=== PATIENT | male | born 1975 | race African-American/Black ===

== ENCOUNTER 2016-11-20 22:01 | Emergency (ER) | payer SELFPAY ==
[2016-11-20 22:13] VITALS: BP 114/76; PULSE 104; TEMP 98.6; BMI 24.0
--- NOTE | 2016-11-20 22:57 | PDOC ---
History of Present Illness - General History Source: Patient Exam Limitations: No Limitations - History of Present Illness Initial Comments: 11/20/16 23:21 The patient is a 40 year old male, with a significant past medical history of DM , Asthma who presents to the emergency department with elevated blood sugar and blisters on back. Patient states his BG was 480 and immediately took his Metformin and Glyburide. In the ED, patients BG was 280. Patient states his back blisters began 4 days ago. Patient denies any fever/chills and presents to the ED for further evaluation. He denies chest pain, headache or dizziness. He denies fever, chills, abdominal pain, nausea, vomit, diarrhea or constipation. He denies dysuria, frequency, urgency or hematuria. Allergies: seafood Past surgical history: none Social history: Current everyday smoker PCP: Dr. Soto <Amanda Giang - Last Filed: 11/20/16 23:21> <Michelet Antony - Last Filed: 11/21/16 00:06> - General Chief Complaint: Blood Sugar Problem Stated Complaint: HIGH BLOOD SUGAR Time Seen by Provider: 11/20/16 22:42 Past History <Amanda Giang - Last Filed: 11/20/16 23:21> - Past Medical History Asthma: Yes Diabetes: Yes Suicide Attempt (Hx): No - Surgical History Cardiac Surgery: No Neurologic Surgery: No - Immunization History Td Vaccination: No TDAP Vaccination: No Immunization Up to Date: Yes - Psycho/Social/Smoking Cessation Hx Anxiety: No Suicidal Ideation: No Smoking Status: Yes Smoking History: Current every day smoker Years of Tobacco Use: 25 Have you smoked in the past 12 months: Yes Number of Cigarettes Smoked Daily: 20 Cigars Per Day: 0 Information on smoking cessation initiated: No 'Breaking Loose' booklet given: 01/07/16 Hx Alcohol Use: No Drug/Substance Use Hx: No Substance Use Type: None Hx Substance Use Treatment: No <Michelet Antony - Last Filed: 11/21/16 00:06> - Past Medical History Allergies/Adverse Reactions: Allergies Allergy/AdvReac Type Severity Reaction Status Date / Time No Known Drug Allergies Allergy Verified 11/20/16 22:09 seafood Allergy Uncoded 11/20/16 22:09 Home Medications: Ambulatory Orders Metformin HCl 1,000 mg PO BID #60 tablet 08/25/11 Glyburide [Diabeta -] 5 mg PO BID@0700,1630 11/20/16 Pioglitazone HCl [Actos] 30 mg PO DAILY 11/20/16 Sulfamethoxazole/Trimethoprim [Bactrim Ds -] 1 tab PO BID #20 tablet 11/21/16 Review of Systems - Review of Systems Able to Perform ROS?: Yes Comments:: 11/20/16 23:22 CONSTITUTIONAL: No fever, no chills, no fatigue EYES: No visual changes ENT: No ear pain, no sore throat CARDIOVASCULAR: No chest pain, no palpitations RESPIRATORY: No cough, no SOB GI: No abdominal pain, no nausea, no vomiting, no constipation, no diarrhea GENITOURINARY: No dysuria, no frequency, no hematuria MUSKULOSKELETAL: No back pain, no joint pain, no myalgias SKIN:+blister to the back. No rash NEURO: No headache <Amanda Giang - Last Filed: 11/20/16 23:21> *Physical Exam - Vital Signs Last Vital Signs Temp Pulse Resp BP Pulse Ox 98.6 F 104 H 22 114/76 99 11/20/16 22:12 11/20/16 22:12 11/20/16 22:12 11/20/16 22:12 11/20/16 22:12 - Physical Exam Comments: 11/20/16 23:22 CONSTITUTIONAL: Well-appearing; well-nourished; in no apparent distress HEAD: Normocephalic; atraumatic EYES: PERRL; EOM intact ENMT: External appears normal; normal oropharynx NECK: Supple; nontender; no cervical lymphadenopathy CARD: Normal S1, S2; no murmurs, rubs, or gallops RESP: Normal chest excursion with respiration; breath sounds clear and equal bilaterally; no wheezes, rhonchi, or rales ABD: Soft, non-distended; non-tender; no palpable organomegaly, no palpable hernias EXT: Normal ROM in all four extremities; non-tender to palpation; distal pulses intact SKIN: +4cm area of induration below L scarpulla. Warm, dry, no rash NEURO: No focal neurological deficiencies. <Amanda Giang - Last Filed: 11/20/16 23:21> - Vital Signs Last Vital Signs Temp Pulse Resp BP Pulse Ox 98.6 F 104 H 22 114/76 99 11/20/16 22:12 11/20/16 22:12 11/20/16 22:12 11/20/16 22:12 11/20/16 22:12 <Michelet Antony - Last Filed: 11/21/16 00:06> ED Treatment Course - LABORATORY CBC & Chemistry Diagram: 11/20/16 22:50 11/20/16 22:50 - ADDITIONAL ORDERS Additional order review: Laboratory Results 11/20/16 22:49 POC Glucometer [id number] 11/20/16 22:49 POC Glucometer [id number] - Medications Given in the ED: ED Medications Discontinued Medications Generic Name Dose Route Start Last Admin Trade Name Freq PRN Reason Stop Dose Admin Trimethoprim/Sulfamethoxazole 1 each 11/20/16 23:04 11/20/16 23:13 Bactrim Ds - PO 11/20/16 23:05 1 each ONCE ONE Administration <Amanda Giang - Last Filed: 11/20/16 23:21> - LABORATORY CBC & Chemistry Diagram: 11/20/16 22:50 11/20/16 22:50 <Michelet Antony - Last Filed: 11/21/16 00:06> Medical Decision Making - Medical Decision Making 11/21/16 00:03 Patient is a well-appearing 40-year-old male with history of poorly controlled diabetes who presents to the ER with elevated blood sugar shortly prior to arrival (BGM for 80) which she treated by taking his regularly scheduled metformin and glyburide. Patient also complaining of an indurated lesion to the left upper back which she said for the past several days which started as a boil. In the ER, patient is awake and alert, afebrile, well-appearing, hemodynamically stable. BGM is noted to be 280. CBC is within normal limit. CMP reveals mild hyperglycemia of 280 with a normal anion gap. Physical exam reveals a 4 cm area of induration located below the left scapula without palpable fluctuance. There is no indication for incision and drainage at this time. Will discharge with Bactrim DS by mouth twice a day for 10 days and warm compresses with outpatient follow-up. <Michelet Antony - Last Filed: 11/21/16 00:06> *DC/Admit/Observation/Transfer - Attestations Scribe Attestion: 11/20/16 23:22 Documentation prepared by Amanda Giang, acting as medical assistant supervisor for Michelet Antony MD <Amanda Giang - Last Filed: 11/20/16 23:21> - Attestations Physician Attestion: 11/21/16 00:03 The documentation was prepared by the scribe under my direct supervision. I have reviewed the documentation which correctly represents the findings, medical decision-making and critical action taken by me. <Michelet Antony - Last Filed: 11/21/16 00:06> Diagnosis at time of Disposition: Hyperglycemia, Cellulitis and abscess of unspecified site - Discharge Dispostion Disposition: HOME Condition at time of disposition: Stable - Referrals Referrals: Keke Rachel MD [Primary Care Provider] - - Patient Instructions Printed Discharge Instructions: DI for Hyperglycemia -- Adult, DI for Cellulitis -- Adult Additional Instructions: Apply warm compresses to the affected area. Take antibiotics as described. Return for follow-up within next 72 hours. Return immediately for high fever, severe pain.
[2016-11-20] MEDS ORDERED: SULFAMETHOXAZOLE/TRIMETHOPRIM 800MG/160MG D.S. TABLET PO ONE (23:04)
[2016-11-20] MEDS ORDERED: SULFAMETHOXAZOLE/TRIMETHOPRIM 800MG/160MG D.S. TABLET ONE (23:10)
[2016-11-20 23:17] LABS: BASOPHIL 0.4 % (0-2.0); EOSINOPHIL 1.4 % (0-4.5); MCH 25.5 pg (25.7-33.7); MCHC 33.2 g/dl (32.0-35.9); MEAN PLT VOLUME 8.6 fl (7.5-11.1); NEUTROPHILS 73.7 % (42.8-82.8); PLATELET COUNT 193 K/MM3 (134-434); RDW 14.4 % (11.9-15.9); WHITE BLOOD COUNT 10.4 K/mm3 (4.0-10.0)
[2016-11-20 23:46] LABS: ALBUMIN 3.4 g/dl (3.4-5.0); ANION GAP 7 (8-16); CALCIUM 9.4 mg/dL (8.5-10.1); CO2 30 mmol/L (21-32); CREATININE 0.9 mg/dL (0.7-1.3); GLUCOSE,RANDOM 267 mg/dL (74-106); SGOT/AST 8 U/L (15-37); SGPT/ALT 22 U/L (12-78)
[2016-11-20 23:48] LABS: ALK PHOS 82 U/L (45-117); BILIRUBIN,TOTAL 0.6 mg/dL (0.2-1.0)
== END 2016-11-21 00:11 | disposition home or self-care (01) ==
LOC: JER 22:01
DX: E11.65 Type 2 diabetes mellitus with hyperglycemia (principal); Z79.84 Long term (current) use of oral hypoglycemic drugs; L03.312 Cellulitis of back [any part except buttock and flank]; L02.212 Cutaneous abscess of back [any part, except buttock and flank]; J45.909 Unspecified asthma, uncomplicated; F17.210 Nicotine dependence, cigarettes, uncomplicated; Z91.013 Allergy to seafood
CPT/HCPCS: 36415; 80053; 85025; 99281-25

== ENCOUNTER 2018-05-30 20:56 | Inpatient (IN) | payer SELFPAY ==
--- NOTE | 2018-05-30 21:08 | PDOC ---
Rapid Medical Evaluation Time Seen by Provider: 05/30/18 21:01 Medical Evaluation: Allergies Allergy/AdvReac Type Severity Reaction Status Date / Time No Known Drug Allergies Allergy Verified 11/20/16 22:09 seafood Allergy Uncoded 11/20/16 22:09 05/30/18 21:02 Pt presents with cough and fever since Tuesday. Also with associated headache, bodyaches, and chest tightness. PMHX of asthma Exam: Tight lung sounds with poor aeration to the bases. Scattered wheezing. O2 sat 92% Orders: Labs, duoneb, cxr, ekg, flu Pt to proceed to the ED for further evaluation Discharge Disposition - Diagnosis Flu-like symptoms - Referrals - Patient Instructions - Post Discharge Activity
[2018-05-30] MEDS: ALBUTEROL SO4 2.5/IPRATROPIUM 0.5 INH SOL 3 ML VIAL.NEB. NEB SCH ×3 (21:09→22:32)
--- NOTE | 2018-05-30 21:19 | PDOC ---
Attending Attestation - HPI HPI: This patient is a 42 year old male with PMHx of NIDDM, remote h/o asthma (last exacerbation > 25 years ago), who presents with cough, chest tightness, fever, dizziness, body aches neck and back pain. Patient states that 4 days ago (Tuesday ), he began having nasal congestion. Tuesday he states he developed a headache , photophobia, body aches, neck stiffness, back pain. Yesterday he notes chest tightness that was at a 3/10 and today he states it s 7/10. He also notes loose , muscousy stools since Tuesday. Last BM was this morning. And states he notices lots of bubbles when he urinates and has a nonproductive cough. Denies recent antibiotics use. Social Hx: ppd smoker (since age 9). Denies EtOH or drug use. 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 <Rebecca Morales - Last Filed: 05/30/18 21:38> - Resident Resident Name: Price Lizarraga - ED Attending Attestation I have performed the following: I have examined & evaluated the patient, The case was reviewed & discussed with the resident, I agree w/resident's findings & plan, Exceptions are as noted - HPI HPI: 05/30/18 21:17 42 yo male with 4 days of fever,chills,cough,body aches He also has c/o of "bubbles' in his urine and the mucus in his stools - Physicial Exam PE: 05/30/18 21:24 Tall,thin 42 yo male p/w wheezing and feeling short of breath with URI symptoms since Tuesday head ncat neck supple lungs scattered expiratory wheezing abd no rebound cvs tachycardia(after resp tx) ext no edema skin warm and dry neuro axox3,ambulatory 05/30/18 21:27 - Medical Decision Making 05/30/18 22:57 42 yo male with fever,chills,nasal congestion,body aches and tonight dev some wheezing 05/31/18 00:54 cxr+ infiltrates cbc wnl [id number] NEGATIVE influenza pt has wheezing now in al lungs mann <Abbie Green - Last Filed: 05/31/18 01:15> Attestations - Attestations 05/30/18 21:38 Documentation prepared by Rebecca Morales, acting as medical staff assistant for Abbie Green MD. <Rebecca Morales - Last Filed: 05/30/18 21:38> - Attestations Physician Attestation: 05/31/18 01:12 pt has hypoxia,low grade fever,infiltrates on his cxr and diffuse expiratory wheezing -pt given IV antibiotics pt has persistent wheezing and will be admitted for further resp treatments, supplemental o2 as needed and IV antibiotics IMP: pneumnia, asthma exacerbation,diabetes <Abbie Green - Last Filed: 05/31/18 01:15>
--- NOTE | 2018-05-30 21:32 | PDOC ---
History of Present Illness - General Chief Complaint: Cold Symptoms Stated Complaint: FEVER Time Seen by Provider: 05/30/18 21:01 History Source: Patient Exam Limitations: No Limitations - History of Present Illness Initial Comments: 05/30/18 21:27 42 yo Male with PMH NIDDM, distant hx Asthma presents with nonproductive cough, myalgias, headache for 4 days and chest tightness for 1 day. He states he has felt sick but did not feel it necessary to come in until the chest tightness increased from a 4 yesterday to a 7 today. He states he has not had an asthma attack in over 25 years. He is an every day smoker for > 30 years and smokes a half a pack a day. Of note he also states that he has some LLQ abdominal pain and has had loose mucus filled stools for the last few days as well. Denies any recent antibiotic use. Past History - Travel Traveled outside of the country in the last 30 days: No Close contact w/someone who was outside of country & ill: No - Past Medical History Allergies/Adverse Reactions: Allergies Allergy/AdvReac Type Severity Reaction Status Date / Time No Known Drug Allergies Allergy Verified 05/30/18 21:03 seafood Allergy Uncoded 05/30/18 21:03 Home Medications: Ambulatory Orders Metformin HCl 1,000 mg PO BID #60 tablet 08/25/11 Glyburide [Diabeta -] 5 mg PO BID@0700,1630 11/20/16 Pioglitazone HCl [Actos] 30 mg PO DAILY 11/20/16 Sulfamethoxazole/Trimethoprim [Bactrim Ds -] 1 tab PO BID #20 tablet 11/21/16 Asthma: Yes (last exacerbation > 25 yrs ago) COPD: No Diabetes: Yes (NIDDM) - Surgical History Cardiac Surgery: No Neurologic Surgery: No - Immunization History Td Vaccination: No TDAP Vaccination: No Immunization Up to Date: Yes - Suicide/Smoking/Psychosocial Hx Smoking Status: Yes Smoking History: Current every day smoker Years of Tobacco Use: 25 Have you smoked in the past 12 months: Yes Number of Cigarettes Smoked Daily: 10 Cigars Per Day: 0 Information on smoking cessation initiated: No 'Breaking Loose' booklet given: 01/07/16 Hx Alcohol Use: No Drug/Substance Use Hx: No Substance Use Type: None Hx Substance Use Treatment: No Review of Systems - Review of Systems Constitutional: Yes: Chills, Fever HEENTM: Yes: Other (Photophobia) Respiratory: Yes: Cough (nonproductive) Cardiac (ROS): Yes: Chest Tightness. No: Chest Pain, Irregular Heart Rate ABD/GI: Yes: Diarrhea (mucus) *Physical Exam - Vital Signs Last Vital Signs Temp Pulse Resp BP Pulse Ox 99.7 F H 109 H 20 111/77 92 L 05/30/18 21:03 05/30/18 21:03 05/30/18 21:03 05/30/18 21:03 05/30/18 21:03 - Physical Exam Comments: 05/30/18 21:41 GEN: A&O, no acute distress HEENT: PERRLA, EOMI, photophobia noted NECK: supple w/o lymphadenopathy, Brudzinski/Kernig sign negative HEART: Tachycardic, regular rhythm, no murmur noted LUNGS: Mild diffuse wheezes, no crackles, decreased air entry at bases ABDOMEN: tenderness LLQ palpation, normoactive bowel sounds EXTREMITIES: normal ROM, no calf tenderness Moderate Sedation - Procedure Monitoring Vital Signs: Procedure Monitoring Vital Signs Temperature 99.7 F H 05/30/18 21:03 Pulse Rate 109 H 05/30/18 21:03 Respiratory Rate 20 05/30/18 21:03 Blood Pressure 111/77 05/30/18 21:03 O2 Sat by Pulse Oximetry (%) 92 L 05/30/18 21:03 Medical Decision Making - Medical Decision Making 05/30/18 21:44 CBC, CMP, Flu swab pending, CXR pending EKG tachycardia without any ST/T wave abnormalities DuoNebs, Decadron 10 mg IV given, will reassess and f/u labs 05/30/18 22:06 Labs still pending. Sign out given to Dr. Rogers who will continue care at this point. *DC/Admit/Observation/Transfer Diagnosis at time of Disposition: Flu-like symptoms - Referrals - Patient Instructions - Post Discharge Activity
[2018-05-30] MEDS ORDERED: DEXAMETHASONE SOD PHOSPHATE 10 MG/1 ML VIAL IVPUSH ONE (21:36)
[2018-05-30] MEDS ORDERED: LACTATED RINGERS SOLUTION 1000 ML INFUS.BAG IV ONE (21:37)
[2018-05-30] MEDS ORDERED: DEXAMETHASONE SOD PHOSPHATE 10 MG/1 ML VIAL ONE (22:05)
[2018-05-30] MEDS ORDERED: ALBUTEROL SO4 2.5/IPRATROPIUM 0.5 INH SOL 3 ML VIAL.NEB. NEB ONE (22:05)
--- NOTE | 2018-05-30 22:05 | PDOC ---
*Physical Exam - Vital Signs Last Vital Signs Temp Pulse Resp BP Pulse Ox 99.7 F H 109 H 20 111/77 92 L 05/30/18 21:03 05/30/18 21:03 05/30/18 21:03 05/30/18 21:03 05/30/18 21:03 ED Treatment Course - LABORATORY CBC & Chemistry Diagram: 05/30/18 21:55 05/30/18 21:55 - Medications Given in the ED: ED Medications Discontinued Medications Generic Name Dose Route Start Last Admin Trade Name Freq PRN Reason Stop Dose Admin Albuterol/Ipratropium 1 amp 05/30/18 21:15 05/30/18 21:09 Duoneb - NEB 05/30/18 22:01 1 amp Q15M ELIEZER Administration Medical Decision Making - Medical Decision Making 05/30/18 22:04 The patient was signed out to me by Dr. Lizarraga. The patient is a 42M who presents with viral syndrome, pending labs and medications. Influenza negative. 05/31/18 02:08 Lungs continue to have wheezing with diffuse rhonchi. Pt endorsed to Dr. Handley for admission. *DC/Admit/Observation/Transfer Diagnosis at time of Disposition: Flu-like symptoms - Discharge Dispostion Condition at time of disposition: Guarded Decision to Admit order: Yes - Prescriptions Prescriptions: Albuterol Sulfate Inhaler - [Ventolin Hfa Inhaler -] 1 - 2 inh PO Q4H PRN #1 inhaler PRN Reason: Wheezing Azithromycin [Zithromax -] 250 mg PO UTDICT #6 tab Prednisone [Deltasone] 40 mg PO DAILY #4 tablet MDD 1 tab - Referrals - Patient Instructions - Post Discharge Activity
[2018-05-30 22:17] LABS: EOS % 0.3 % (0-4.5); HEMATOCRIT 38.5 % (35.4-49); HEMOGLOBIN 12.9 GM/dL (11.7-16.9); LYMPH % 11.5 % (8-40); MCH 26.5 pg (25.7-33.7); MCHC 33.6 g/dl (32.0-35.9); MEAN CELL VOLUME 78.8 fl (80-96); MEAN PLT VOLUME 9.3 fl (7.5-11.1); MONO % 12.6 % (3.8-10.2); NEUT % 74.6 % (42.8-82.8); PLATELET COUNT 159 K/MM3 (134-434); RBC 4.89 M/mm3 (4.00-5.60); RDW 14.1 % (11.9-15.9); WHITE BLOOD COUNT 10.3 K/mm3 (4.0-10.0)
[2018-05-30 23:03] LABS: PLATELET ESTIMATE ADEQUATE
[2018-05-30 23:08] LABS: ALBUMIN 2.9 g/dl (3.4-5.0); ALK PHOS 96 U/L (45-117); ANION GAP 9 MMOL/L (8-16); BILIRUBIN,TOTAL 0.5 mg/dL (0.2-1); BLOOD UREA NITROGEN 8 mg/dL (7-18); CHLORIDE 97 mmol/L (98-107); CO2 28 mmol/L (21-32); CREATININE 0.9 mg/dL (0.55-1.3); GLUCOSE,RANDOM 250 mg/dL (74-106); POTASSIUM 3.8 mmol/L (3.5-5.1); SGOT/AST 30 U/L (15-37); SGPT/ALT 30 U/L (13-61); SODIUM 134 mmol/L (136-145); TOT PROT 6.4 g/dl (6.4-8.2)
[2018-05-30] MEDS ORDERED: AZITHROMYCIN IVPB 500 MG in DEXTROSE 5%-WATER - 250 ML IVPB ONE (23:22)
[2018-05-30] MEDS ORDERED: CEFTRIAXONE 1 GM in DEXTROSE 5%-WATER - 100 ML IVPB ONE (23:43)
[2018-05-30] MEDS ORDERED: AZITHROMYCIN IVPB 500 MG/250 ML BAG IVPB ONE (23:49)
[2018-05-30] MEDS ORDERED: CEFTRIAXONE 1 GM/50 ML BAG ONE (23:50)
[2018-05-31] MEDS ORDERED: ALBUTEROL SO4 2.5/IPRATROPIUM 0.5 INH SOL 3 ML VIAL.NEB. NEB ONE ×3 (00:07→00:28)
[2018-05-31 00:42] LABS: URINE APPEARANCE SLCLOUDY; URINE BILIRUBIN NEGATIVE (<2.0 mg/dL); URINE COLOR YELLOW; URINE GLUCOSE (UA) 3+ (NEGATIVE); URINE KETONE 1+ (NEGATIVE); URINE LEUK ESTERASE NEGATIVE (NEGATIVE); URINE NITRITE NEGATIVE (NEGATIVE); URINE PROTEIN 1+ (NEGATIVE)
[2018-05-31 00:53] LABS: EPI CELLS RARE /HPF (FEW); URINE BACTERIA RARE /hpf (NONE SEEN); URINE HYALINE CAST 1 /lpf; URINE MUCUS RARE
--- NOTE | 2018-05-31 03:09 | HP ---
CHIEF COMPLAINT: non-productive cough, myalgia, headache PCP: Dr. Tapia HISTORY OF PRESENT ILLNESS: 42M w/ pmhx of asthma, NIDDM presents with 4 day history of non-productive cough , mylagia, HORTON, cold symptoms, chest tightness. He states he started "feeling bad " last Tuesday, but when he woke up Tuesday morning, his symptoms worsened. He denies sick contacts and currently lives with his fiancee and two daughters at home. He admits to only taking Aleve for his headache and Robitussin for his cough. Additionally, he admits to chest tightness especially when he coughs. He states that since the onset of these symptoms, he gets short of breath; worsened when laying flat, alleviated when sitting up straight. Of note, he is a current smoker, 1/2 PPD for the past 30 years. His persistent symptoms prompted him to come to the ED to seek further medical attention. Pt also has a history of asthma, but his last asthma attack was when he was around 12 years of age. He denies currently using an inhaler and hasn't had to use one in many years. He denies seeing a [employer] and only follows up with his PCP, Dr. Oviedo. ER course was notable for: (1) HR 109, WBC 10.3, Na 134, K 3.8, Glu 280 (2) Rapid flu neg, CXR showed patchy interstitial opacities center of lung L > R , suggestive of pneumonia infiltrates (3) Duonebs x4, Decadron 10 IVP, LR x1L, Azithromycin 500 IVPB, Ceftriaxone 1 gm IVPB Recent Travel: Denies PAST MEDICAL HISTORY: NIDDM Asthma PAST SURGICAL HISTORY: Denies Social History: Smoking: Current smoker; 1/2 PPD x30 years Alcohol: Denies Drugs: Denies Family History: Mother- Heart disease, HTN Maternal aunt- breast cx Maternal grandmother- DM Allergies No Known Drug Allergies Allergy (Verified 05/30/18 21:03) seafood Allergy (Uncoded 05/30/18 21:03) HOME MEDICATIONS: Home Medications Medication Instructions Recorded Metformin HCl 1,000 mg PO BID #60 tablet 08/25/11 Glyburide [Diabeta -] 5 mg PO BID@0700,1630 11/20/16 Pioglitazone HCl [Actos] 30 mg PO DAILY 11/20/16 Sulfamethoxazole/Trimethoprim 1 tab PO BID #20 tablet 11/21/16 [Bactrim Ds -] Albuterol Sulfate Inhaler - 1 - 2 inh PO Q4H PRN #1 inhaler 05/30/18 [Ventolin Hfa Inhaler -] Azithromycin [Zithromax -] 250 mg PO UTDICT #6 tab 05/30/18 Prednisone [Deltasone] 40 mg PO DAILY #4 tablet MDD 1 tab 05/30/18 REVIEW OF SYSTEMS CONSTITUTIONAL: Denies chills, diaphoresis, loss of appetite HEENT: Denies difficulty swallowing, ear pain, eye pain, visual/hearing changes CARDIOVASCULAR: Admits to chest tightness; Denies chest pain, palpitations, irregular heart rate, lightheadedness, peripheral edema RESPIRATORY: Admits to sob and cough; Denies noriega, orthopnea, wheezing GASTROINTESTINAL: Admits to nausea/vomiting; Denies urinary/bowel symptoms GENITOURINARY: Denies hematuria, dysuria MUSCULOSKELETAL: Denies neck or back pain NEUROLOGIC: Denies bladder/bowel incontinence, facial droop, slurred speech PHYSICAL EXAMINATION Vital Signs - 24 hr 05/30/18 05/31/18 21:03 02:30 Temperature 99.7 F H 97.9 F Pulse Rate 109 H Pulse Rate [ 111 H Left Radial] Respiratory 20 18 Rate Blood Pressure 111/77 Blood Pressure 106/69 [Left Arm] O2 Sat by Pulse 92 L 96 Oximetry (%) GENERAL: AAOx3. NAD. Comfortable. HEENT: AT/NC. EOMI. REAL. Dry mucus membranes. NECK: Normal range of motion, supple without lymphadenopathy, JVD, or masses. LUNGS: Diffuse b/l wheezes throughout. Good air entry. HEART: Tachycardic. Normal S1, S2. No murmurs heard. ABDOMEN: Soft, ND. +TTP in LUQ. No masses or bruits noted. Hyperactive bowel sounds. MUSCULOSKELETAL: Normal range of motion at all joints. No bony deformities or tenderness. No CVA tenderness. UPPER EXTREMITIES: 2+ pulses, warm, well-perfused. No cyanosis. No clubbing. No peripheral edema. LOWER EXTREMITIES: 2+ pulses, warm, well-perfused. No calf tenderness. No peripheral edema. NEUROLOGICAL: Normal speech. Normal gait. 5/5 muscle strength in u/l b/l extremities including hand traffic control flagger. SKIN: Warm, dry, normal turgor, no rashes or lesions noted, normal capillary refill. Laboratory Results - last 24 hr 05/30/18 05/30/18 05/30/18 21:10 21:55 21:55 WBC 10.3 H RBC 4.89 Hgb 12.9 Hct 38.5 MCV 78.8 L MCH 26.5 MCHC 33.6 RDW 14.1 Plt Count 159 MPV 9.3 Absolute Neuts (auto) 7.7 Total Counted 100 Neutrophils % 74.6 Neutrophils % (Manual) 86.0 H Lymphocytes % 11.5 Lymphocytes % (Manual) 11.0 Monocytes % 12.6 H Monocytes % (Manual) 3 L Eosinophils % 0.3 Basophils % 1.0 Nucleated RBC % 0 Platelet Estimate Adequate Sodium 134 L Potassium 3.8 Chloride 97 L Carbon Dioxide 28 Anion Gap 9 BUN 8 Creatinine 0.9 Creat Clearance w eGFR > 60 Random Glucose 250 H Calcium 8.0 L Total Bilirubin 0.5 AST 30 ALT 30 Alkaline Phosphatase 96 Total Protein 6.4 Albumin 2.9 L Urine Color Urine Appearance Urine pH Ur Specific [place] Urine Protein Urine Glucose (UA) Urine Ketones Urine Blood Urine Nitrite Urine Bilirubin Urine Urobilinogen Ur Leukocyte Esterase Urine WBC (Auto) Urine RBC (Auto) Ur Epithelial Cells Urine Bacteria Hyaline Casts Urine Mucus Influenza A (Rapid) Negative Influenza B (Rapid) Negative 05/31/18 00:30 WBC RBC Hgb Hct MCV MCH MCHC RDW Plt Count MPV Absolute Neuts (auto) Total Counted Neutrophils % Neutrophils % (Manual) Lymphocytes % Lymphocytes % (Manual) Monocytes % Monocytes % (Manual) Eosinophils % Basophils % Nucleated RBC % Platelet Estimate Sodium Potassium Chloride Carbon Dioxide Anion Gap BUN Creatinine Creat Clearance w eGFR Random Glucose Calcium Total Bilirubin AST ALT Alkaline Phosphatase Total Protein Albumin Urine Color Yellow Urine Appearance Slcloudy Urine pH 5.0 Ur Specific [place] 1.017 Urine Protein 1+ H Urine Glucose (UA) 3+ H Urine Ketones 1+ H Urine Blood Negative Urine Nitrite Negative Urine Bilirubin Negative Urine Urobilinogen 2.0 Ur Leukocyte Esterase Negative Urine WBC (Auto) 5 Urine RBC (Auto) <1 Ur Epithelial Cells Rare Urine Bacteria Rare Hyaline Casts 1 Urine Mucus Rare Influenza A (Rapid) Influenza B (Rapid) IMAGING: * CXR: Patchy interstitial opacities center of lung L > R, suggesting pneumonia infiltrates ASSESSMENT/PLAN: 42M w/ pmhx of asthma, NIDDM presents with 4 day history of non-productive cough , mylagia, HORTON, cold symptoms, chest tightness admitted for community-acquired pneumonia. #Community-acquired pneumonia -Cont IV Ceftriaxone and Azithromycin -CXR suggestive of pneumonia with infiltrates present -Duonebs QID -Rapid flu neg -Resp viral panel/Urine Legionella Ag/S. Pneumo ordered -IV hydration/encourage PO hydration #Shortness of breath; likely 2/2 acute COPD exacerbation w/ hx of asthma -Duonebs PRN, Albuterol PRN -PO Prednisone 60 -Pt may have COPD given significant smoking history and lungs seem to appear hyperinflated on CXR -Will likely need pulm follow up as outpatient with PFTs for definitive diagnosis of lung disease #NIDDM, uncontrolled. -Home home DM meds -BGMs/ISS ACHS -A1c ordered #Hx of Tobacco Abuse -Smoking cessation counseling #Prophylaxis -Lovenox 40 SQ #FEN -LR @ 100 x2 bags -recheck lytes in AM -diabetic diet dispo -full code -admit to med-surg obs Visit type - Emergency Visit Emergency Visit: Yes ED Registration Date: 05/31/18 Care time: The patient presented to the Emergency Department on the above date and was hospitalized for further evaluation of their emergent condition. - New Patient This patient is new to me today: Yes Date on this admission: 05/31/18 - Critical Care Critical Care patient: No
--- NOTE | 2018-05-31 03:14 | PN ---
Teaching Attending Note Name of Resident: Sharmila Bob ATTENDING PHYSICIAN STATEMENT I saw and evaluated the patient. I reviewed the resident's note and discussed the case with the resident. I agree with the resident's findings and plan as documented. SUBJECTIVE: Seen and examined; please see the resident note for further historical informaiton. Carine, maxine is a 42 y/o male presenting to the ER with 4 day history of constitutional sx and cough; he took alieve and robitussin at home without improvement. No sick contacts. Some abdominal pain when he coughs. 2 episodes of vomitting (non-bloody). Some associated mild SOB. He admits to some diarrhea (loose, nonbloody) and poor PO intake since tuesday. His symptoms continued to progress so he came to the ER to be seen. 10 sys ROS done and negative aside from HPI PMH (Uncontrolled DM, Asthma without any exacerbation since age 12 and on no home inhalers), PSH, Social hx, Family hx reviewed Medication reconciliation pending OBJECTIVE: VS, labs, imaging reviewed NAD, AAO, resting in bed on NC NC AT EOMI PERRLA RRR s1/2 no mgr Lungs with mild wheezes and some mild rales b/l, w/ sym exp. No accessory muscle use, etc. etc. CN2-12 wnl, no fnd Normal mood, appropriate affect ASSESSMENT AND PLAN: Patient presents with CAP + likely COPD exacerbation; placing on abx, nebs, steroids. Already saturating >95% on RA with pre and post; CURB 65 noted. 1) CAP -Admit; hydrate and monitor for improvement -Ceftriaxone and azithromycin -Followup urine Ag's, sputum cx, viral PCR. -Empirically hydrating 2) Likely COPD with history of Asthma -Likely 2/2 URI triggering his sx -ATC nebs with PRN albuterol, PO prednisone, already on azithro with #1 -Monitor for improvement. Will need meds at DC and referral for pulmonary and PFTs 3) Uncontrolled DM -Check A1c; SSI. He states he is often in the 400s at home so he may need insulin at DC. Will need close followup with PCP 4) Tobacco abuse -Counseled to stop smoking 5) Tachycardia -Sinus; if it persists despite hydration and treatment of the above we will consider further workup (negligible Well's score, etc.) FENA -LR@100 -PRN replete -Regular diet -As tolerated Full Code
[2018-05-31] MEDS ORDERED: ACETAMINOPHEN 325 MG TABLET (FP) PO PRN (04:01)
[2018-05-31] MEDS ORDERED: SODIUM CHLORIDE 1,000 ML IV SCH (04:45)
[2018-05-31] MEDS ORDERED: LACTATED RINGERS SOLUTION 1,000 ML/1,000 ML INFUS.BAG IV SCH (04:45)
[2018-05-31] MEDS: INSULIN SLIDING SCALE (NOVOLOG) 1 VIAL SQ SCH ×4 (06:34→21:58)
[2018-05-31 07:33] LABS: BASO % 0.2 % (0-2.0); HEMATOCRIT 38.4 % (35.4-49); HEMOGLOBIN 12.6 GM/dL (11.7-16.9); LYMPH % 4.6 % (8-40); MCH 25.7 pg (25.7-33.7); MCHC 32.8 g/dl (32.0-35.9); MEAN CELL VOLUME 78.4 fl (80-96); MEAN PLT VOLUME 9.3 fl (7.5-11.1); MONO % 5.8 % (3.8-10.2); NEUT % 89.4 % (42.8-82.8); PLATELET COUNT 167 K/MM3 (134-434); RBC 4.91 M/mm3 (4.00-5.60); RDW 14.6 % (11.9-15.9); WHITE BLOOD COUNT 8.5 K/mm3 (4.0-10.0)
[2018-05-31] MEDS: ALBUTEROL SO4 2.5/IPRATROPIUM 0.5 INH SOL 3 ML VIAL.NEB. NEB SCH ×4 (07:50→20:35)
[2018-05-31 07:52] LABS: ALBUMIN 2.9 g/dl (3.4-5.0); ALK PHOS 95 U/L (45-117); ANION GAP 13 MMOL/L (8-16); BILIRUBIN,TOTAL 0.4 mg/dL (0.2-1); BLOOD UREA NITROGEN 13 mg/dL (7-18); CALCIUM 8.6 mg/dL (8.5-10.1); CHLORIDE 95 mmol/L (98-107); CO2 26 mmol/L (21-32); CREATININE 1.1 mg/dL (0.55-1.3); POTASSIUM 4.1 mmol/L (3.5-5.1); SGOT/AST 18 U/L (15-37); SGPT/ALT 31 U/L (13-61); SODIUM 134 mmol/L (136-145); TOT PROT 6.7 g/dl (6.4-8.2)
[2018-05-31 07:54] LABS: GLUCOSE,RANDOM 473 mg/dL (74-106)
[2018-05-31 08:03] VITALS: BMI 20.7
--- NOTE | 2018-05-31 09:52 | EKG ---
Test Reason : Blood Pressure : / mmHG Vent. Rate : 119 BPM Atrial Rate : 119 BPM P-R Int : 118 ms QRS Dur : 068 ms QT Int : 332 ms P-R-T Axes : 072 -21 034 degrees QTc Int : 467 ms SINUS TACHYCARDIA WITH PREMATURE ATRIAL COMPLEXES WITH ABERRANT CONDUCTION OTHERWISE NORMAL ECG WHEN COMPARED WITH ECG OF 08-JAN-2014 23:00, ABERRANT CONDUCTION IS NOW PRESENT QUESTIONABLE CHANGE IN QRS AXIS ST NOW DEPRESSED IN INFERIOR LEADS ST NO LONGER ELEVATED IN ANTERIOR LEADS Confirmed by ARELIS JOSEPH, AVANI ([id number]) on 05/31/2018 9:52:17 AM Referred By: Confirmed By:AVANI INFANTE MD
[2018-05-31] MEDS ORDERED: AZITHROMYCIN IVPB 500 MG/250 ML BAG IVPB SCH (10:00)
[2018-05-31] MEDS ORDERED: PANTOPRAZOLE 40 MG TABLET (FP) PO SCH (10:00)
[2018-05-31] MEDS ORDERED: predniSONE 20 MG TABLET (UD) PO SCH (10:00)
[2018-05-31] MEDS ORDERED: CEFTRIAXONE 1 GM in DEXTROSE 5%-WATER - 50 ML IVPB SCH (10:00)
[2018-05-31] MEDS ORDERED: cefTRIAXone SODIUM 1 GM VIAL ONE (10:43)
[2018-05-31] MEDS ORDERED: DEXTROSE 5%-WATER - 50 ML IVPB ONE (10:44)
[2018-05-31] MEDS: INSULIN (LEVEMIR) 100 UNITS/ML UNITS SQ SCH ×3 (10:52→22:35)
[2018-05-31] MEDS: ENOXAPARIN NA (PORCINE) 40 MG/0.4 ML DISP.SYRIN SQ SCH (10:53)
[2018-05-31] MEDS ORDERED: PT OWN MED DRAWER 7, Y5N ONE (11:36)
--- NOTE | 2018-05-31 14:22 | PN ---
Physical Exam: SUBJECTIVE: Patient seen and examined at bedside. no acute events since admission. pulled out IV in the early AM and wanted to leave. But now amenable to staying. breathing improved. per pt baseline A1C ~14. pt endorses LLQ pain and mucus diarrhea x5d. denies fever, chills, cp, sob, n/v, blood in stools, urinary sxs. OBJECTIVE: Vital Signs Period Temp Pulse Resp BP Sys/Trent Pulse Ox Last 24 Hr 97.9 F-99.7 F 102-111 18-20 106-123/65-77 92-96 GENERAL: AAOx3. NAD. Comfortable. HEENT: NCAT. EOMI. PERRL. MMM NECK: Normal range of motion, supple without lymphadenopathy, JVD, or masses. LUNGS: Diffuse b/l wheezes throughout. Good air entry. HEART: RRR. Normal S1, S2. No m/r/g ABDOMEN: Soft, ND. +TTP in LLQ. No masses or bruits noted. MUSCULOSKELETAL: Normal range of motion at all joints. No bony deformities or tenderness. No CVA tenderness. UPPER EXTREMITIES: 2+ pulses, warm, well-perfused. No cyanosis. No clubbing. No peripheral edema. LOWER EXTREMITIES: 2+ pulses, warm, well-perfused. No calf tenderness. No peripheral edema. NEUROLOGICAL: Normal speech. 5/5 muscle strength in u/l b/l extremities including hand lion tamer. SKIN: Warm, dry, normal turgor, no rashes or lesions noted, normal capillary refill. Laboratory Results - last 24 hr 05/30/18 05/30/18 05/30/18 21:10 21:55 21:55 WBC 10.3 H RBC 4.89 Hgb 12.9 Hct 38.5 MCV 78.8 L MCH 26.5 MCHC 33.6 RDW 14.1 Plt Count 159 MPV 9.3 Absolute Neuts (auto) 7.7 Total Counted 100 Neutrophils % 74.6 Neutrophils % (Manual) 86.0 H Lymphocytes % 11.5 Lymphocytes % (Manual) 11.0 Monocytes % 12.6 H Monocytes % (Manual) 3 L Eosinophils % 0.3 Basophils % 1.0 Nucleated RBC % 0 Platelet Estimate Adequate Sodium 134 L Potassium 3.8 Chloride 97 L Carbon Dioxide 28 Anion Gap 9 BUN 8 Creatinine 0.9 Creat Clearance w eGFR > 60 POC Glucometer Random Glucose 250 H Hemoglobin A1c % Calcium 8.0 L Total Bilirubin 0.5 AST 30 ALT 30 Alkaline Phosphatase 96 Total Protein 6.4 Albumin 2.9 L Urine Color Urine Appearance Urine pH Ur Specific [place] Urine Protein Urine Glucose (UA) Urine Ketones Urine Blood Urine Nitrite Urine Bilirubin Urine Urobilinogen Ur Leukocyte Esterase Urine WBC (Auto) Urine RBC (Auto) Ur Epithelial Cells Urine Bacteria Hyaline Casts Urine Mucus Influenza A (Rapid) Negative Influenza B (Rapid) Negative 05/31/18 05/31/18 05/31/18 00:30 05:50 06:00 WBC 8.5 RBC 4.91 Hgb 12.6 Hct 38.4 MCV 78.4 L MCH 25.7 MCHC 32.8 RDW 14.6 Plt Count 167 MPV 9.3 Absolute Neuts (auto) 7.6 Total Counted Neutrophils % 89.4 H Neutrophils % (Manual) Lymphocytes % 4.6 L D Lymphocytes % (Manual) Monocytes % 5.8 Monocytes % (Manual) Eosinophils % 0.0 D Basophils % 0.2 Nucleated RBC % 0 Platelet Estimate Sodium Potassium Chloride Carbon Dioxide Anion Gap BUN Creatinine Creat Clearance w eGFR POC Glucometer 469 Random Glucose Hemoglobin A1c % Calcium Total Bilirubin AST ALT Alkaline Phosphatase Total Protein Albumin Urine Color Yellow Urine Appearance Slcloudy Urine pH 5.0 Ur Specific [place] 1.017 Urine Protein 1+ H Urine Glucose (UA) 3+ H Urine Ketones 1+ H Urine Blood Negative Urine Nitrite Negative Urine Bilirubin Negative Urine Urobilinogen 2.0 Ur Leukocyte Esterase Negative Urine WBC (Auto) 5 Urine RBC (Auto) <1 Ur Epithelial Cells Rare Urine Bacteria Rare Hyaline Casts 1 Urine Mucus Rare Influenza A (Rapid) Influenza B (Rapid) 05/31/18 05/31/18 05/31/18 06:00 06:00 11:21 WBC RBC Hgb Hct MCV MCH MCHC RDW Plt Count MPV Absolute Neuts (auto) Total Counted Neutrophils % Neutrophils % (Manual) Lymphocytes % Lymphocytes % (Manual) Monocytes % Monocytes % (Manual) Eosinophils % Basophils % Nucleated RBC % Platelet Estimate Sodium 134 L Potassium 4.1 Chloride 95 L Carbon Dioxide 26 Anion Gap 13 BUN 13 Creatinine 1.1 Creat Clearance w eGFR > 60 POC Glucometer 269 Random Glucose 473 H* Hemoglobin A1c % 12.8 H Calcium 8.6 Total Bilirubin 0.4 AST 18 ALT 31 Alkaline Phosphatase 95 Total Protein 6.7 Albumin 2.9 L Urine Color Urine Appearance Urine pH Ur Specific [place] Urine Protein Urine Glucose (UA) Urine Ketones Urine Blood Urine Nitrite Urine Bilirubin Urine Urobilinogen Ur Leukocyte Esterase Urine WBC (Auto) Urine RBC (Auto) Ur Epithelial Cells Urine Bacteria Hyaline Casts Urine Mucus Influenza A (Rapid) Influenza B (Rapid) Active Medications Generic Name Dose Route Start Last Admin Trade Name Freq PRN Reason Stop Dose Admin Acetaminophen 650 mg 05/31/18 04:01 Tylenol - PO Q4H PRN FEVER Albuterol Sulfate 1 amp 05/31/18 08:00 Ventolin 0.083% Nebulizer Soln - NEB RQID ELIEZER Albuterol/Ipratropium 1 amp 05/31/18 08:00 05/31/18 11:45 Duoneb - NEB Not Given RQID ELIEZER Enoxaparin Sodium 40 mg 05/31/18 10:00 05/31/18 10:53 Lovenox - SQ 40 mg DAILY ELIEZER Administration Azithromycin 500 mg in 250 mls @ 250 mls/hr 05/31/18 10:00 05/31/18 10:52 Zithromax 500mg Ivpb (Pre-Docked) IVPB 250 mls/hr DAILY ELIEZER Administration Ceftriaxone Sodium 1 gm/ 50 mls @ 100 mls/hr 05/31/18 10:00 05/31/18 10:52 Dextrose IVPB 100 mls/hr DAILY [facility] Administration Protocol Insulin Aspart 1 vial 05/31/18 07:00 05/31/18 06:34 Novolog Vial Sliding Scale - SQ 12 unit ACHS [facility] Administration Protocol Insulin Detemir 10 units 05/31/18 09:04 05/31/18 11:02 Levemir Vial SQ Not Given BID ELIEZER Pantoprazole Sodium 40 mg 05/31/18 10:00 05/31/18 10:52 Protonix - PO 40 mg DAILY ELIEZER Administration IMAGING: * CXR: Patchy interstitial opacities center of lung L > R, suggesting pneumonia infiltrates ASSESSMENT/PLAN: 42M w/ pmhx of asthma, NIDDM presents with 4 day history of non-productive cough , mylagia, [place], cold symptoms, chest tightness admitted for SOB 2/2 asthma vs non -confirmed COPD? exacerbation 2/2 community-acquired pneumonia. #SOB; likely 2/2 asthma vs possible non-confirmed COPD? exacerbation - improving , satting 95% on RA, not requiring O2 -Duonebs PRN, Albuterol PRN -dc PO Prednisone 60 -Pt may have COPD given significant smoking history and lungs seem to appear hyperinflated on CXR -Will likely need pulm follow up as outpatient with PFTs for definitive diagnosis of lung disease #Community-acquired pneumonia -Cont IV Ceftriaxone and Azithromycin -CXR suggestive of pneumonia with infiltrates present -Duonebs QID -Rapid flu neg -f/u Resp viral panel, sputum cx -Urine Legionella Ag/S. Pneumo neg -dc IV hydration -encourage PO hydration LLQ pain and mucus diarrhea x5d - unclear etiology at this time. ddx: colitis vs gastroenteritis vs cdiff etc... -c diff stool studies -stool cx -CT A/P w/ contrast #NIDDM, uncontrolled. per pt baseline A1C ~14 -Hold PO meds -BGMs/ISS ACHS -Levemir 10U bid -endo consult -A1c #Hx of Tobacco Abuse -Smoking cessation counseling #Prophylaxis -Lovenox 40 SQ #FEN -encourage PO hydration -replete prn -diabetic diet dispo -full code -med-surg obs Visit type - Emergency Visit Emergency Visit: Yes ED Registration Date: 05/31/18 Care time: The patient presented to the Emergency Department on the above date and was hospitalized for further evaluation of their emergent condition. - New Patient This patient is new to me today: Yes Date on this admission: 05/31/18 - Critical Care Critical Care patient: No
[2018-05-31] MEDS: ALBUTEROL SO4 0.083% IH SOL 2.5 MG/3 ML VIAL.NEB. NEB SCH (16:14)
--- NOTE | 2018-05-31 17:29 | PN ---
Teaching Attending Note Name of Resident: Arvin Blanton ATTENDING PHYSICIAN STATEMENT I saw and evaluated the patient. I reviewed the resident's note and discussed the case with the resident. I agree with the resident's findings and plan as documented. SUBJECTIVE: Ongoing cough - no CP/hemoptysis. LLQ abdominal pain and non-bloody diarrhea ongoing. No fever/chills. OBJECTIVE: Afebrile, Hemodynamically Stable. Last Vital Signs Temp Pulse Resp BP Pulse Ox 98.5 F 92 H 20 120/70 96 05/31/18 10:00 05/31/18 10:00 05/31/18 10:00 05/31/18 10:00 05/31/18 10:00 HEENT - Atraumatic, Normocephalic. Heart - S1, S2, RRR Lungs - Bibasal crackles - no wheeze. Abdomen - Soft, tender LLQ. Bowel Sounds normal. Extremities - no edema, no calf tenderness Laboratory Results - last 24 hr 05/30/18 05/30/18 05/30/18 21:10 21:55 21:55 WBC 10.3 H RBC 4.89 Hgb 12.9 Hct 38.5 MCV 78.8 L MCH 26.5 MCHC 33.6 RDW 14.1 Plt Count 159 MPV 9.3 Absolute Neuts (auto) 7.7 Total Counted 100 Neutrophils % 74.6 Neutrophils % (Manual) 86.0 H Lymphocytes % 11.5 Lymphocytes % (Manual) 11.0 Monocytes % 12.6 H Monocytes % (Manual) 3 L Eosinophils % 0.3 Basophils % 1.0 Nucleated RBC % 0 Platelet Estimate Adequate Sodium 134 L Potassium 3.8 Chloride 97 L Carbon Dioxide 28 Anion Gap 9 BUN 8 Creatinine 0.9 Creat Clearance w eGFR > 60 POC Glucometer Random Glucose 250 H Hemoglobin A1c % Calcium 8.0 L Total Bilirubin 0.5 AST 30 ALT 30 Alkaline Phosphatase 96 Total Protein 6.4 Albumin 2.9 L Urine Color Urine Appearance Urine pH Ur Specific [place] Urine Protein Urine Glucose (UA) Urine Ketones Urine Blood Urine Nitrite Urine Bilirubin Urine Urobilinogen Ur Leukocyte Esterase Urine WBC (Auto) Urine RBC (Auto) Ur Epithelial Cells Urine Bacteria Hyaline Casts Urine Mucus Influenza A (Rapid) Negative Influenza B (Rapid) Negative 05/31/18 05/31/18 05/31/18 00:30 05:50 06:00 WBC 8.5 RBC 4.91 Hgb 12.6 Hct 38.4 MCV 78.4 L MCH 25.7 MCHC 32.8 RDW 14.6 Plt Count 167 MPV 9.3 Absolute Neuts (auto) 7.6 Total Counted Neutrophils % 89.4 H Neutrophils % (Manual) Lymphocytes % 4.6 L D Lymphocytes % (Manual) Monocytes % 5.8 Monocytes % (Manual) Eosinophils % 0.0 D Basophils % 0.2 Nucleated RBC % 0 Platelet Estimate Sodium Potassium Chloride Carbon Dioxide Anion Gap BUN Creatinine Creat Clearance w eGFR POC Glucometer 469 Random Glucose Hemoglobin A1c % Calcium Total Bilirubin AST ALT Alkaline Phosphatase Total Protein Albumin Urine Color Yellow Urine Appearance Slcloudy Urine pH 5.0 Ur Specific [place] 1.017 Urine Protein 1+ H Urine Glucose (UA) 3+ H Urine Ketones 1+ H Urine Blood Negative Urine Nitrite Negative Urine Bilirubin Negative Urine Urobilinogen 2.0 Ur Leukocyte Esterase Negative Urine WBC (Auto) 5 Urine RBC (Auto) <1 Ur Epithelial Cells Rare Urine Bacteria Rare Hyaline Casts 1 Urine Mucus Rare Influenza A (Rapid) Influenza B (Rapid) 05/31/18 05/31/18 05/31/18 06:00 06:00 11:21 WBC RBC Hgb Hct MCV MCH MCHC RDW Plt Count MPV Absolute Neuts (auto) Total Counted Neutrophils % Neutrophils % (Manual) Lymphocytes % Lymphocytes % (Manual) Monocytes % Monocytes % (Manual) Eosinophils % Basophils % Nucleated RBC % Platelet Estimate Sodium 134 L Potassium 4.1 Chloride 95 L Carbon Dioxide 26 Anion Gap 13 BUN 13 Creatinine 1.1 Creat Clearance w eGFR > 60 POC Glucometer 269 Random Glucose 473 H* Hemoglobin A1c % 12.8 H Calcium 8.6 Total Bilirubin 0.4 AST 18 ALT 31 Alkaline Phosphatase 95 Total Protein 6.7 Albumin 2.9 L Urine Color Urine Appearance Urine pH Ur Specific [place] Urine Protein Urine Glucose (UA) Urine Ketones Urine Blood Urine Nitrite Urine Bilirubin Urine Urobilinogen Ur Leukocyte Esterase Urine WBC (Auto) Urine RBC (Auto) Ur Epithelial Cells Urine Bacteria Hyaline Casts Urine Mucus Influenza A (Rapid) Influenza B (Rapid) 05/31/18 17:14 WBC RBC Hgb Hct MCV MCH MCHC RDW Plt Count MPV Absolute Neuts (auto) Total Counted Neutrophils % Neutrophils % (Manual) Lymphocytes % Lymphocytes % (Manual) Monocytes % Monocytes % (Manual) Eosinophils % Basophils % Nucleated RBC % Platelet Estimate Sodium Potassium Chloride Carbon Dioxide Anion Gap BUN Creatinine Creat Clearance w eGFR POC Glucometer 314 Random Glucose Hemoglobin A1c % Calcium Total Bilirubin AST ALT Alkaline Phosphatase Total Protein Albumin Urine Color Urine Appearance Urine pH Ur Specific [place] Urine Protein Urine Glucose (UA) Urine Ketones Urine Blood Urine Nitrite Urine Bilirubin Urine Urobilinogen Ur Leukocyte Esterase Urine WBC (Auto) Urine RBC (Auto) Ur Epithelial Cells Urine Bacteria Hyaline Casts Urine Mucus Influenza A (Rapid) Influenza B (Rapid) Current Medications Generic Name Dose Route Start Last Admin Trade Name Freq PRN Reason Stop Dose Admin Acetaminophen 650 mg 05/31/18 04:01 Tylenol - PO Q4H PRN FEVER Albuterol Sulfate 1 amp 05/31/18 08:00 05/31/18 16:14 Ventolin 0.083% Nebulizer Soln - NEB Not Given RQID ELIEZER Albuterol/Ipratropium 1 amp 05/31/18 08:00 05/31/18 16:14 Duoneb - NEB Not Given RQID ELIEZER Enoxaparin Sodium 40 mg 05/31/18 10:00 05/31/18 10:53 Lovenox - SQ 40 mg DAILY ELIEZER Administration Metronidazole 500 mg in 100 mls @ 100 mls/hr 05/31/18 15:45 05/31/18 17:16 Flagyl 500mg Premixed Ivpb - IVPB 100 mls/hr Q8H-IV ELIEZER Administration Levofloxacin 750 mg in 150 mls @ 150 mls/hr 05/31/18 15:30 05/31/18 17:16 Levaquin 750 Mg Premixed Ivpb - IVPB 150 mls/hr DAILY [facility] Administration Protocol Insulin Aspart 1 vial 05/31/18 07:00 05/31/18 17:16 Novolog Vial Sliding Scale - SQ 8 unit ACHS [facility] Administration Protocol Insulin Detemir 10 units 05/31/18 09:04 05/31/18 11:02 Levemir Vial SQ Not Given BID [facility] ASSESSMENT AND PLAN: 42 year old male with history of Asthma (childhood) presents with productive cough, dyspnea, abdominal pain and diarrhea. No fever/chills. 1. CAP Continue IV hydration and Abx therapy Blood Cx not sent. Flu negative. Sputum Cx and Urine legionella/Strep Ag requested. Initially placed on Ceftriaxone and Azithromycin - will transition to Levaquin. Afebrile/Hemodynamically Stable. Will monitor respiratory status. 2. Acute Colitis CT A/P - possible sigmoid colitis. Change Cef/Azithro to Levofloxacin and Flagyl. Stool for Cx and Cdiff. GI consulted. 3. History of Asthma, Active Smoker No evidence of exacerbation currently Will discontinue Steroid. Continue DuoNebs. For out-patient Pulmonary eval for PFTs to exclude underlying COPD. Smoking cessation counselling done. 4. DM 2, uncontrolled, with hyperglycemia. A1C 12.8 Will start on Levemir and Novolog sliding scale. Endocrinology consulted. 5. Distal Esophageal wall thickening - incidental finding, asymptomatic GI consulted for further recommendations/intervention. 6. Bladder Wall thickening and Prostate enlargement - no retention/ hydronephrosis For out-patient Urology evaluation. DVT Px - Lovenox SQ
[2018-05-31] MEDS ORDERED: INSULIN (NOVOLOG) ASPART 100 UNITS/ML 10ML VIAL ONE (21:26)
--- NOTE | 2018-06-01 00:16 | CONSULT ---
Consult Consult Specialty:: endocrine Referred by:: dr.youseph gaines Reason for Consultation:: dm 2 - History of Present Illness Chief Complaint: weak and chest pain History of Present Illness: 42 yo Male with PMH NIDDM, distant hx Asthma presents with nonproductive cough, myalgias, headache and chest tightness . He states he has not been checking blood sugars at home.or taking medication for dm regularly. He states he has not had an asthma attack in over 25 years. He is an every day smoker for > 30 years and smokes a half a pack a day. Of note he also states that he has some LLQ abdominal pain and has frequent urination, and thirst. - Alcohol/Substance Use Hx Alcohol Use: No - Smoking History Smoking history: Current every day smoker Have you smoked in the past 12 months: Yes Aproximately how many cigarettes per day: 10 Home Medications - Allergies Allergies/Adverse Reactions: Allergies Allergy/AdvReac Type Severity Reaction Status Date / Time No Known Drug Allergies Allergy Verified 05/30/18 21:03 seafood Allergy Uncoded 05/30/18 21:03 - Home Medications Home Medications: Ambulatory Orders Metformin HCl 1,000 mg PO BID #60 tablet 08/25/11 Glyburide [Diabeta -] 5 mg PO BID@0700,1630 11/20/16 Pioglitazone HCl [Actos] 30 mg PO DAILY 11/20/16 Sulfamethoxazole/Trimethoprim [Bactrim Ds -] 1 tab PO BID #20 tablet 11/21/16 Albuterol Sulfate Inhaler - [Ventolin Hfa Inhaler -] 1 - 2 inh PO Q4H PRN #1 inhaler 05/30/18 Azithromycin [Zithromax -] 250 mg PO UTDICT #6 tab 05/30/18 Prednisone [Deltasone] 40 mg PO DAILY #4 tablet MDD 1 tab 05/30/18 Review of Systems - Review of Systems Constitutional: reports: Lethargy, Unintentional Wgt. Loss, Weakness Eyes: reports: Blurred Vision HENT: reports: No Symptoms Neck: reports: Tenderness Cardiovascular: reports: Palpitations, Shortness of Breath Respiratory: reports: Exercise Intolerance, SOB on Exertion Gastrointestinal: reports: Bloating Genitourinary: reports: Frequency, Urgency Breasts: reports: No Symptoms Reported Musculoskeletal: reports: Muscle Cramps, Muscle Weakness Endocrine: reports: Unexplained Weight Loss Physical Exam Vital Signs: Vital Signs Temperature 98.1 F 05/31/18 16:30 Pulse Rate 91 H 05/31/18 16:30 Respiratory Rate 20 05/31/18 20:37 Blood Pressure 104/63 05/31/18 16:30 O2 Sat by Pulse Oximetry (%) 96 05/31/18 20:37 Constitutional: Yes: Anxious Eyes: Yes: EOM Intact HENT: Yes: Normocephalic Neck: Yes: Trachea Midline Cardiovascular: Yes: Regular Rate and Rhythm Respiratory: Yes: Rales, Rhonchi, SOB, Tachypnea Gastrointestinal: Yes: Normal Bowel Sounds ...Rectal Exam: Yes: Deferred Renal/: Yes: WNL Breast(s): Yes: WNL Musculoskeletal: Yes: WNL Extremities: Yes: WNL Neurological: Yes: Alert, Oriented Labs: CBC, BMP 05/31/18 06:00 05/31/18 06:00 Problem List - Problems (1) Flu-like symptoms Code(s): R68.89 - OTHER GENERAL SYMPTOMS AND SIGNS (2) Abscess Code(s): L02.91 - CUTANEOUS ABSCESS, UNSPECIFIED (3) Cellulitis and abscess of unspecified site Code(s): L03.90 - CELLULITIS, UNSPECIFIED; L02.91 - CUTANEOUS ABSCESS, UNSPECIFIED (4) Cellulitis of hand Code(s): L03.119 - CELLULITIS OF UNSPECIFIED PART OF LIMB (5) Diabetes Code(s): E11.9 - TYPE 2 DIABETES MELLITUS WITHOUT COMPLICATIONS (6) Headache Code(s): R51 - HEADACHE (7) Hyperglycemia Code(s): R73.9 - HYPERGLYCEMIA, UNSPECIFIED Assessment/Plan Current Active Problems Flu-like symptoms (Acute) dm 2 niddm hyperglycemia htn ashd copd excerbation asthmatic bronchitis Abnormal Lab Results 05/31/18 05/31/18 05/31/18 00:30 06:00 06:00 MCV 78.4 L Neutrophils % 89.4 H Lymphocytes % 4.6 L D Sodium 134 L Chloride 95 L Random Glucose 473 H* Hemoglobin A1c % Albumin 2.9 L Urine Protein 1+ H Urine Glucose (UA) 3+ H Urine Ketones 1+ H 05/31/18 06:00 MCV Neutrophils % Lymphocytes % Sodium Chloride Random Glucose Hemoglobin A1c % 12.8 H Albumin Urine Protein Urine Glucose (UA) Urine Ketones Laboratory Results - last 24 hr 05/31/18 05/31/18 05/31/18 00:30 05:50 06:00 WBC 8.5 RBC 4.91 Hgb 12.6 Hct 38.4 MCV 78.4 L MCH 25.7 MCHC 32.8 RDW 14.6 Plt Count 167 MPV 9.3 Absolute Neuts (auto) 7.6 Neutrophils % 89.4 H Lymphocytes % 4.6 L D Monocytes % 5.8 Eosinophils % 0.0 D Basophils % 0.2 Nucleated RBC % 0 Sodium Potassium Chloride Carbon Dioxide Anion Gap BUN Creatinine Creat Clearance w eGFR POC Glucometer 469 Random Glucose Hemoglobin A1c % Calcium Total Bilirubin AST ALT Alkaline Phosphatase Total Protein Albumin Urine Color Yellow Urine Appearance Slcloudy Urine pH 5.0 Ur Specific [place] 1.017 Urine Protein 1+ H Urine Glucose (UA) 3+ H Urine Ketones 1+ H Urine Blood Negative Urine Nitrite Negative Urine Bilirubin Negative Urine Urobilinogen 2.0 Ur Leukocyte Esterase Negative Urine WBC (Auto) 5 Urine RBC (Auto) <1 Ur Epithelial Cells Rare Urine Bacteria Rare Hyaline Casts 1 Urine Mucus Rare 05/31/18 05/31/18 05/31/18 06:00 06:00 11:21 WBC RBC Hgb Hct MCV MCH MCHC RDW Plt Count MPV Absolute Neuts (auto) Neutrophils % Lymphocytes % Monocytes % Eosinophils % Basophils % Nucleated RBC % Sodium 134 L Potassium 4.1 Chloride 95 L Carbon Dioxide 26 Anion Gap 13 BUN 13 Creatinine 1.1 Creat Clearance w eGFR > 60 POC Glucometer 269 Random Glucose 473 H* Hemoglobin A1c % 12.8 H Calcium 8.6 Total Bilirubin 0.4 AST 18 ALT 31 Alkaline Phosphatase 95 Total Protein 6.7 Albumin 2.9 L Urine Color Urine Appearance Urine pH Ur Specific [place] Urine Protein Urine Glucose (UA) Urine Ketones Urine Blood Urine Nitrite Urine Bilirubin Urine Urobilinogen Ur Leukocyte Esterase Urine WBC (Auto) Urine RBC (Auto) Ur Epithelial Cells Urine Bacteria Hyaline Casts Urine Mucus 05/31/18 05/31/18 17:14 21:56 WBC RBC Hgb Hct MCV MCH MCHC RDW Plt Count MPV Absolute Neuts (auto) Neutrophils % Lymphocytes % Monocytes % Eosinophils % Basophils % Nucleated RBC % Sodium Potassium Chloride Carbon Dioxide Anion Gap BUN Creatinine Creat Clearance w eGFR POC Glucometer 314 79 Random Glucose Hemoglobin A1c % Calcium Total Bilirubin AST ALT Alkaline Phosphatase Total Protein Albumin Urine Color Urine Appearance Urine pH Ur Specific [place] Urine Protein Urine Glucose (UA) Urine Ketones Urine Blood Urine Nitrite Urine Bilirubin Urine Urobilinogen Ur Leukocyte Esterase Urine WBC (Auto) Urine RBC (Auto) Ur Epithelial Cells Urine Bacteria Hyaline Casts Urine Mucus plan: bgm qid novolog insulin doses levmemir 20 units am using insulin to treat glucose toxicity
[2018-06-01] MEDS ORDERED: INSULIN (LEVEMIR) 100 UNITS/ML UNITS SQ SCH ×2 (00:17→07:30)
[2018-06-01] MEDS: INSULIN SLIDING SCALE (NOVOLOG) 1 VIAL SQ SCH ×3 (06:17→17:28)
[2018-06-01] MEDS ORDERED: INSULIN (NOVOLOG) ASPART 100 UNITS/ML 10ML VIAL ONE ×2 (06:36→11:44)
[2018-06-01] MEDS ORDERED: INSULIN (LEVEMIR) 100 UNITS/ML UNITS SQ ONE (06:37)
[2018-06-01] MEDS: ALBUTEROL SO4 2.5/IPRATROPIUM 0.5 INH SOL 3 ML VIAL.NEB. NEB SCH ×4 (07:50→20:14)
[2018-06-01 09:00] LABS: BASO % 0.4 % (0-2.0); EOS % 0.1 % (0-4.5); HEMATOCRIT 35.2 % (35.4-49); HEMOGLOBIN 11.6 GM/dL (11.7-16.9); MCH 25.4 pg (25.7-33.7); MCHC 32.9 g/dl (32.0-35.9); MEAN CELL VOLUME 77.2 fl (80-96); MEAN PLT VOLUME 9.1 fl (7.5-11.1); MONO % 11.2 % (3.8-10.2); NEUT % 73.3 % (42.8-82.8); PLATELET COUNT 179 K/MM3 (134-434); RBC 4.56 M/mm3 (4.00-5.60); RDW 14.5 % (11.9-15.9); WHITE BLOOD COUNT 8.3 K/mm3 (4.0-10.0)
[2018-06-01 09:39] LABS: ALBUMIN 2.6 g/dl (3.4-5.0); ALK PHOS 99 U/L (45-117); ANION GAP 8 MMOL/L (8-16); BILIRUBIN,TOTAL 0.3 mg/dL (0.2-1); BLOOD UREA NITROGEN 7 mg/dL (7-18); CALCIUM 8.4 mg/dL (8.5-10.1); CHLORIDE 102 mmol/L (98-107); CO2 31 mmol/L (21-32); CREATININE 0.6 mg/dL (0.55-1.3); GLUCOSE,RANDOM 115 mg/dL (74-106); POTASSIUM 3.3 mmol/L (3.5-5.1); SGOT/AST 33 U/L (15-37); SGPT/ALT 37 U/L (13-61); SODIUM 142 mmol/L (136-145); TOT PROT 5.8 g/dl (6.4-8.2)
[2018-06-01] MEDS: ENOXAPARIN NA (PORCINE) 40 MG/0.4 ML DISP.SYRIN SQ SCH (09:56)
[2018-06-01] MEDS ORDERED: NAPROXEN 375 MG TABLET (FP) PO ONE (10:20)
[2018-06-01] MEDS ORDERED: SODIUM CHLORIDE 1,000 ML IV SCH (10:30)
[2018-06-01] MEDS ORDERED: POTASSIUM CHLORIDE TABS 20 MEQ TABLET.ER (FP) PO ONE (12:00)
--- NOTE | 2018-06-01 13:31 | PN ---
Physical Exam: SUBJECTIVE: Patient seen and examined at bedside. no acute events overnight. c/ o frontal HORTON despite tylenol. still w/ LLQ pain and mucus diarrhea x2. denies fever, chills, cp, sob, n/v, blood in stools, urinary sxs. OBJECTIVE: Vital Signs Period Temp Pulse Resp BP Sys/Trent Pulse Ox Last 24 Hr 98.1 F-99 F 81-99 20-20 104-138/63-89 96 GENERAL: AAOx3. NAD. HEENT: NCAT. EOMI. PERRL. MMM NECK: Normal range of motion, supple without lymphadenopathy, JVD, or masses. LUNGS: Diffuse b/l inspiratory wheezes throughout. mild fine crackles at bases HEART: RRR. Normal S1, S2. No m/r/g ABDOMEN: Soft, ND. +TTP in LLQ. No masses or bruits noted. MUSCULOSKELETAL: Normal range of motion at all joints. No bony deformities or tenderness. No CVA tenderness. UPPER EXTREMITIES: 2+ pulses, warm, well-perfused. No cyanosis. No clubbing. No peripheral edema. LOWER EXTREMITIES: 2+ pulses, warm, well-perfused. No calf tenderness. No peripheral edema. NEUROLOGICAL: Normal speech. 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 SKIN: Warm, dry, normal turgor, no rashes or lesions noted, normal capillary refill. Laboratory Results - last 24 hr 05/31/18 05/31/18 06/01/18 17:14 21:56 06:14 WBC RBC Hgb Hct MCV MCH MCHC RDW Plt Count MPV Absolute Neuts (auto) Neutrophils % Lymphocytes % Monocytes % Eosinophils % Basophils % Nucleated RBC % Sodium Potassium Chloride Carbon Dioxide Anion Gap BUN Creatinine Creat Clearance w eGFR POC Glucometer 314 79 100 Random Glucose Calcium Total Bilirubin AST ALT Alkaline Phosphatase Total Protein Albumin 06/01/18 06/01/18 06/01/18 07:49 07:49 11:30 WBC 8.3 RBC 4.56 Hgb 11.6 L Hct 35.2 L MCV 77.2 L MCH 25.4 L MCHC 32.9 RDW 14.5 Plt Count 179 MPV 9.1 Absolute Neuts (auto) 6.1 Neutrophils % 73.3 Lymphocytes % 15.0 D Monocytes % 11.2 H D Eosinophils % 0.1 D Basophils % 0.4 Nucleated RBC % 0 Sodium 142 Potassium 3.3 L Chloride 102 Carbon Dioxide 31 Anion Gap 8 BUN 7 Creatinine 0.6 Creat Clearance w eGFR > 60 POC Glucometer 312 Random Glucose 115 H Calcium 8.4 L Total Bilirubin 0.3 AST 33 ALT 37 Alkaline Phosphatase 99 Total Protein 5.8 L Albumin 2.6 L Active Medications Generic Name Dose Route Start Last Admin Trade Name Freq PRN Reason Stop Dose Admin Acetaminophen 650 mg 05/31/18 04:01 06/01/18 06:18 Tylenol - PO 650 mg Q4H PRN Administration FEVER Albuterol Sulfate 1 amp 05/31/18 08:00 05/31/18 16:14 Ventolin 0.083% Nebulizer Soln - NEB Not Given RQID ELIEZER Albuterol/Ipratropium 1 amp 05/31/18 08:00 06/01/18 11:15 Duoneb - NEB Not Given RQID ELIEZER Enoxaparin Sodium 40 mg 05/31/18 10:00 06/01/18 09:56 Lovenox - SQ 40 mg DAILY ELIEZER Administration Metronidazole 500 mg in 100 mls @ 100 mls/hr 05/31/18 15:45 06/01/18 12:01 Flagyl 500mg Premixed Ivpb - IVPB 100 mls/hr Q8H-IV ELIEZER Administration Levofloxacin 750 mg in 150 mls @ 150 mls/hr 05/31/18 15:30 06/01/18 09:56 Levaquin 750 Mg Premixed Ivpb - IVPB 150 mls/hr DAILY ELIEZER Administration Protocol Sodium Chloride 1,000 mls @ 100 mls/hr 06/01/18 10:30 06/01/18 11:04 Normal Saline - IV 100 mls/hr ASDIR ELIEZER Administration Insulin Aspart 1 vial 06/01/18 07:00 06/01/18 12:00 Novolog Vial Sliding Scale - SQ 8 units ACHS [facility] Administration Protocol Insulin Detemir 10 units 06/01/18 07:30 06/01/18 08:32 Levemir Vial SQ Not Given BID@0700,2200 [facility] IMAGING: * CXR: Patchy interstitial opacities center of lung L > R, suggesting pneumonia infiltrates ASSESSMENT/PLAN: 42M w/ pmhx of asthma, NIDDM presents with 4 day history of non-productive cough , mylagia, HORTON, cold symptoms, chest tightness admitted for SOB 2/2 asthma vs non -confirmed COPD? exacerbation 2/2 community-acquired pneumonia. #SOB; likely 2/2 asthma vs possible non-confirmed COPD? exacerbation - improving , satting 95% on RA, not requiring O2 -Duonebs PRN, Albuterol PRN -off steroids -Pt may have COPD given significant smoking history and lungs seem to appear hyperinflated on CXR -Will likely need pulm follow up as outpatient with PFTs for definitive diagnosis of lung disease #Community-acquired pneumonia -s/p IV Ceftriaxone and Azithromycin -c/w levaquin 750 qd -CXR suggestive of pneumonia with infiltrates present -Duonebs QID -Rapid flu neg -f/u Resp viral panel, sputum cx -Urine Legionella Ag/S. Pneumo neg -CT A/P w/ contrast - groundglass opacities in visualized lung mann suggestive of atypical infx. #Acute Colitis - LLQ pain and mucus diarrhea x5d. still having NB diarrhea CT A/P - possible sigmoid colitis. C/w IV flagyl 500tid and levaquin 750 qd. f/u Stool for Cx and Cdiff. GI consulted clear liquid diet #HORTON - not ctl w/ tylenol. may be 2/2 dehydration 2/2 diarrhea one time dose Naproxen 375 NS 100cc/hr #Distal Esophageal wall thickening - incidental finding on CT A/P, asymptomatic GI consulted for further recommendations/intervention. #Bladder Wall thickening and Prostate enlargement - incidental finding on CT A/ P. no retention/hydronephrosis For out-patient Urology evaluation. #NIDDM, uncontrolled. per pt baseline A1C ~14 -Hold PO meds -BGMs/ISS ACHS -Levemir 10U bid -endo consult -A1C 12.8 #Hx of Tobacco Abuse -Smoking cessation counseling #Prophylaxis -Lovenox 40 SQ #FEN -NS 100cc/hr and encourage PO hydration -replete prn -clear liquid diet dispo -full code -med-surg obs Visit type - Emergency Visit Emergency Visit: Yes ED Registration Date: 05/31/18 Care time: The patient presented to the Emergency Department on the above date and was hospitalized for further evaluation of their emergent condition. - New Patient This patient is new to me today: Yes Date on this admission: 06/01/18 - Critical Care Critical Care patient: No
[2018-06-01] MEDS: ALBUTEROL SO4 0.083% IH SOL 2.5 MG/3 ML VIAL.NEB. NEB SCH (15:42)
--- NOTE | 2018-06-01 15:54 | PN ---
Teaching Attending Note Name of Resident: Arvin Blanton ATTENDING PHYSICIAN STATEMENT I saw and evaluated the patient. I reviewed the resident's note and discussed the case with the resident. I agree with the resident's findings and plan as documented. SUBJECTIVE: Ongoing cough - no CP/hemoptysis. LLQ abdominal pain and non-bloody diarrhea ongoing. No fever/chills. OBJECTIVE: Afebrile, Hemodynamically Stable. Last Vital Signs Temp Pulse Resp BP Pulse Ox 99 F 81 20 131/87 96 06/01/18 06:00 06/01/18 06:00 06/01/18 06:00 06/01/18 06:00 05/31/18 20:37 HEENT - Atraumatic, Normocephalic. Heart - S1, S2, RRR Lungs - Few bibasal crackles - no wheeze. Abdomen - Soft, tender LLQ. Bowel Sounds normal. Extremities - no edema, no calf tenderness Laboratory Results - last 24 hr 05/31/18 05/31/18 06/01/18 17:14 21:56 06:14 WBC RBC Hgb Hct MCV MCH MCHC RDW Plt Count MPV Absolute Neuts (auto) Neutrophils % Lymphocytes % Monocytes % Eosinophils % Basophils % Nucleated RBC % Sodium Potassium Chloride Carbon Dioxide Anion Gap BUN Creatinine Creat Clearance w eGFR POC Glucometer 314 79 100 Random Glucose Calcium Total Bilirubin AST ALT Alkaline Phosphatase Total Protein Albumin 06/01/18 06/01/18 06/01/18 07:49 07:49 11:30 WBC 8.3 RBC 4.56 Hgb 11.6 L Hct 35.2 L MCV 77.2 L MCH 25.4 L MCHC 32.9 RDW 14.5 Plt Count 179 MPV 9.1 Absolute Neuts (auto) 6.1 Neutrophils % 73.3 Lymphocytes % 15.0 D Monocytes % 11.2 H D Eosinophils % 0.1 D Basophils % 0.4 Nucleated RBC % 0 Sodium 142 Potassium 3.3 L Chloride 102 Carbon Dioxide 31 Anion Gap 8 BUN 7 Creatinine 0.6 Creat Clearance w eGFR > 60 POC Glucometer 312 Random Glucose 115 H Calcium 8.4 L Total Bilirubin 0.3 AST 33 ALT 37 Alkaline Phosphatase 99 Total Protein 5.8 L Albumin 2.6 L Current Medications Generic Name Dose Route Start Last Admin Trade Name Freq PRN Reason Stop Dose Admin Acetaminophen 650 mg 05/31/18 04:01 06/01/18 06:18 Tylenol - PO 650 mg Q4H PRN Administration FEVER Albuterol/Ipratropium 1 amp 05/31/18 08:00 06/01/18 15:41 Duoneb - NEB 1 amp RQID ELIEZER Administration Enoxaparin Sodium 40 mg 05/31/18 10:00 06/01/18 09:56 Lovenox - SQ 40 mg DAILY ELIEZER Administration Metronidazole 500 mg in 100 mls @ 100 mls/hr 05/31/18 15:45 06/01/18 12:01 Flagyl 500mg Premixed Ivpb - IVPB 100 mls/hr Q8H-IV ELIEZER Administration Levofloxacin 750 mg in 150 mls @ 150 mls/hr 05/31/18 15:30 06/01/18 09:56 Levaquin 750 Mg Premixed Ivpb - IVPB 150 mls/hr DAILY ELIEZER Administration Protocol Sodium Chloride 1,000 mls @ 100 mls/hr 06/01/18 10:30 06/01/18 11:04 Normal Saline - IV 100 mls/hr ASDIR ELIEZER Administration Insulin Aspart 1 vial 06/01/18 07:00 06/01/18 12:00 Novolog Vial Sliding Scale - SQ 8 units ACHS [facility] Administration Protocol Insulin Detemir 10 units 06/01/18 07:30 06/01/18 08:32 Levemir Vial SQ Not Given BID@0700,2200 [facility] ASSESSMENT AND PLAN: 42 year old male with history of Asthma (childhood) presents with productive cough, dyspnea, abdominal pain and diarrhea. No fever/chills. 1. CAP Continue IV hydration and Abx therapy Blood Cx not sent. Flu negative. Urine legionella/Strep Ag negative. Initially placed on Ceftriaxone and Azithromycin - transitioned to Levaquin. Afebrile/Hemodynamically Stable. Will monitor respiratory status. 2. Acute Colitis CT A/P - possible sigmoid colitis. Cef/Azithro changed to Levofloxacin and Flagyl. Stool for Cx pending. Stool Cdiff negative. GI consulted for further recommendations. 3. History of Asthma, Active Smoker No evidence of exacerbation currently Steroid discontinued. Continue DuoNebs. For out-patient Pulmonary eval for PFTs to exclude underlying COPD. Smoking cessation counselling done. 4. DM 2, uncontrolled, with hyperglycemia. A1C 12.8 Will start on Levemir and Novolog sliding scale. Endocrinology evaluated and agree with Levemir/sliding scale. 5. Distal Esophageal wall thickening - incidental finding, asymptomatic GI consulted for further recommendations/intervention. 6. Bladder Wall thickening and Prostate enlargement - no urinary retention/ hydronephrosis For out-patient Urology evaluation. DVT Px - Lovenox SQ
[2018-06-01 18:28] VITALS: BP 110/72; PULSE 91; TEMP 98.3
--- NOTE | 2018-06-01 18:33 | CON.GI ---
Consult Consult Specialty:: covering for Dr Mauricio - History of Present Illness History of Present Illness: 40 y/o male wit PMH of diabetes was admitted because of pneumonia. He also complained of non bloody diarrhea for the past 3 days, these occured 3-4 times a dya . He denies abdominal pian, fever, nausea and Vomiting. He denies any travel history and recent antibiotic use. For the past 12 hours, no further diarrhea. CT was oredered which revealed questionable sigmoiod inflammation and esophagitis. He denies dysphagia. He has los more than 100lbs in the pasr 3 years. - Alcohol/Substance Use Hx Alcohol Use: No - Smoking History Smoking history: Current every day smoker Have you smoked in the past 12 months: Yes Aproximately how many cigarettes per day: 10 Home Medications - Allergies Allergies/Adverse Reactions: Allergies Allergy/AdvReac Type Severity Reaction Status Date / Time No Known Drug Allergies Allergy Verified 05/30/18 21:03 seafood Allergy Uncoded 05/30/18 21:03 - Home Medications Home Medications: Ambulatory Orders Metformin HCl 1,000 mg PO BID #60 tablet 08/25/11 Glyburide [Diabeta -] 5 mg PO BID@0700,1630 11/20/16 Pioglitazone HCl [Actos] 30 mg PO DAILY 11/20/16 Sulfamethoxazole/Trimethoprim [Bactrim Ds -] 1 tab PO BID #20 tablet 11/21/16 Albuterol Sulfate Inhaler - [Ventolin Hfa Inhaler -] 1 - 2 inh PO Q4H PRN #1 inhaler 05/30/18 Azithromycin [Zithromax -] 250 mg PO UTDICT #6 tab 05/30/18 Prednisone [Deltasone] 40 mg PO DAILY #4 tablet MDD 1 tab 05/30/18 Physical Exam-GI Vital Signs: Vital Signs Temperature 97.4 F L 06/01/18 10:00 Pulse Rate 106 H 06/01/18 10:00 Respiratory Rate 20 06/01/18 10:00 Blood Pressure 120/68 06/01/18 10:00 O2 Sat by Pulse Oximetry (%) 98 06/01/18 09:00 Constitutional: Yes: Well Nourished Eyes: Yes: Conjunctiva Clear HENT: Yes: Atraumatic Neck: Yes: Trachea Midline Cardiovascular: Yes: Regular Rate and Rhythm Respiratory: Yes: CTA Bilaterally ...Palpate: Yes: Soft. No: Firm/Rigid, Guarding, Hepatomegaly, Mass, Pulsatile Mass, Splenomegaly, Tenderness, Tenderness, Epigastium Labs: CBC, BMP 06/01/18 07:49 06/01/18 07:49 Problem List - Problems (1) Diarrhea Assessment/Plan: resolved, r/o infectious etiology R> stool culture stool c.diff Dr Mauricio will see patient in am Code(s): R19.7 - DIARRHEA, UNSPECIFIED
--- NOTE | 2018-06-01 21:37 | PN ---
Progress Note (short form) - Note Progress Note: Pt requesting to leave AMA. Risks of leaving before completion of treatment were verbalized to patient. Pt made aware and understood risks. He was also given recommendation to return to the hospital if he has any worsening or new symptoms. AMA form signed.
--- NOTE | 2018-06-02 07:00 | DS ---
Physical Exam: SUBJECTIVE: Pt left AMA OBJECTIVE: Vital Signs Period Temp Pulse Resp BP Sys/Trent Pulse Ox Last 24 Hr 97.4 F-98.3 F 91-106 20-20 110-120/68-72 98 PHYSICAL EXAM unable to examine pt left AMA LABS Laboratory Results - last 24 hr 06/01/18 06/01/18 06/01/18 07:49 07:49 11:30 WBC 8.3 RBC 4.56 Hgb 11.6 L Hct 35.2 L MCV 77.2 L MCH 25.4 L MCHC 32.9 RDW 14.5 Plt Count 179 MPV 9.1 Absolute Neuts (auto) 6.1 Neutrophils % 73.3 Lymphocytes % 15.0 D Monocytes % 11.2 H D Eosinophils % 0.1 D Basophils % 0.4 Nucleated RBC % 0 Sodium 142 Potassium 3.3 L Chloride 102 Carbon Dioxide 31 Anion Gap 8 BUN 7 Creatinine 0.6 Creat Clearance w eGFR > 60 POC Glucometer 312 Random Glucose 115 H Calcium 8.4 L Total Bilirubin 0.3 AST 33 ALT 37 Alkaline Phosphatase 99 Total Protein 5.8 L Albumin 2.6 L 06/01/18 16:31 WBC RBC Hgb Hct MCV MCH MCHC RDW Plt Count MPV Absolute Neuts (auto) Neutrophils % Lymphocytes % Monocytes % Eosinophils % Basophils % Nucleated RBC % Sodium Potassium Chloride Carbon Dioxide Anion Gap BUN Creatinine Creat Clearance w eGFR POC Glucometer 246 Random Glucose Calcium Total Bilirubin AST ALT Alkaline Phosphatase Total Protein Albumin HOSPITAL COURSE: Date of Admission:05/31/18 Date of Discharge: 06/02/18 42M w/ pmhx of asthma, NIDDM presents with 4 day history of non-productive cough , mylagia, HORTON, cold symptoms, chest tightness, mucus diarrhea, and LLQ pain. Pt admitted for asthma vs possible non-confirmed COPD? exacerbation 2/2 CAP and found w/ possible mild sigmoid colitis on CT A/P. CXR: Patchy interstitial opacities center of lung L > R, suggesting pneumonia infiltrates. CT A/P w/ contrast - possible sigmoid colitis., groundglass opacities in visualized lung mann suggestive of atypical infx. pt was initially tx w/ IV Ceftriaxone and Azithromycin and was then switched to IV flagyl 500tid and levaquin 750 qd, given CT findings. pt sxs improved and did not require any supplemental O2. GI was consulted. C diff was neg. stool cx pending, will notify pt if pos. -Pt may have COPD given significant smoking history and lungs seemed to appear hyperinflated on CXR -Will likely need pulm follow up as outpatient with PFTs for definitive diagnosis of lung disease -pt counseled on Smoking cessation Distal Esophageal wall thickening - incidental finding on CT A/P, asymptomatic GI was consulted for further recommendations/intervention but was unable to evaluate prior to pt leaving. pt should f/u outpt. Bladder Wall thickening and Prostate enlargement - incidental finding on CT A/ P. no retention/hydronephrosis For out-patient Urology evaluation. NIDDM, uncontrolled. A1C 12.8 pt was educated and recommended to f/u outpt and to be refered by PCP to an rib matcher and fitter pt left AMA Minutes to complete discharge: 40 Discharge Summary Reason For Visit: PNEUMONIA/ASTHMA Condition: Stable - Instructions Diet, Activity, Other Instructions: you came in for asthma exacerbation due to a pneumonia infection and abdominal pain with diarrhea. CT scan of your abdomen showed colitis in your sigmoid colon. We gave you antibiotics, steroids, and fluids which helped your symptoms. During you hospitalization we noticed your sugars and A1c were very high, 12.8. We educated and discussed with you about the health problems associate with intermediate uncontrolled sugars/diabetes. We will refer you to an Dag Sprayer or please have your primary care physician refer you to an Dag Sprayer to help manage and control your sugars. On your ct scan you were found with a some what enlarged esophagus and bladder. please have your pcp refer you to a urologist and follow up with a Veneer Jointer Operator within 1 week Please continue your home meds Please monitor your sugars at home Please limit your carbohydrate intake. Please follow up with your primary care physician within 1 week Please follow up with Veneer Jointer Operator within 1 week Please follow up with Dag Sprayer within 1 week If you experience any shortness of breath, chest pain, fevers, chills, nausea, vomit, blood in stools, diarrhea, abdominal pain, please call 911 or go to the ER. Disposition: AGAINST MEDICAL ADVICE - Home Medications Comprehensive Discharge Medication List: Ambulatory Orders Glyburide [Diabeta -] 5 mg PO BID@0700,1630 11/20/16 Pioglitazone HCl [Actos] 30 mg PO DAILY 11/20/16 Albuterol Sulfate Inhaler - [Ventolin Hfa Inhaler -] 1 - 2 inh PO Q4H PRN #1 inhaler 05/30/18 levoFLOXacin [Levaquin] 750 mg PO DAILY #5 tab 06/01/18 metroNIDAZOLE [Flagyl -] 500 mg PO Q8H #15 tablet 06/01/18 This patient is new to me today: Yes Date on this admission: 06/02/18 Emergency Visit: Yes ED Registration Date: 05/31/18 Care time: The patient presented to the Emergency Department on the above date and was hospitalized for further evaluation of their emergent condition. Critical Care patient: No - Discharge Referral Referred to [facility] Med P.C[facility] No
== END 2018-06-01 20:20 | disposition left against medical advice (07) | DRG 139 ==
LOC: JER 20:56 → JERBED 05-31 01:28 → J8W 05-31 03:57 → OBSVTOIN 05-31 14:10
PROVIDERS: ADMIT Internal Medicine
DX: J18.9 Pneumonia, unspecified organism (principal); E11.65 Type 2 diabetes mellitus with hyperglycemia; F17.210 Nicotine dependence, cigarettes, uncomplicated; K52.9 Noninfective gastroenteritis and colitis, unspecified; L03.119 Cellulitis of unspecified part of limb; J45.909 Unspecified asthma, uncomplicated; J44.9 Chronic obstructive pulmonary disease, unspecified; R68.89 Other general symptoms and signs; R00.0 Tachycardia, unspecified; J44.1 Chronic obstructive pulmonary disease with (acute) exacerbation; E86.0 Dehydration
CPT/HCPCS: 36415; 71046-TC-FY; 74177-TC; 80053; 81003; 81015; 82962; 83036; 85025; 87045; 87046; 87324; 87449; 87804; 87899; 93005; 93010; 94640; 99284-25; G0378; J1100; J7030; Q9967

== ENCOUNTER 2019-10-08 15:47 | Emergency (ER) | payer OTHER ==
[2019-10-08 15:56] VITALS: TEMP 98; BMI 20.5
[2019-10-08] MEDS ORDERED: ASPIRIN 325 MG TABLET PO ONE (17:45)
[2019-10-08] MEDS ORDERED: ASPIRIN 81 MG CHEWABLE TABLETS ONE (18:23)
[2019-10-08 18:42] LABS: BASO % 1.5 % (0-2.0); EOS % 3.2 % (0-4.5); HEMATOCRIT 33.5 % (35.4-49); HEMOGLOBIN 10.7 GM/dL (11.7-16.9); LYMPH % 37.7 % (8-40); MCHC 31.9 g/dl (32.0-35.9); MEAN CELL VOLUME 78.5 fl (80-96); MEAN PLT VOLUME 8.4 fl (7.5-11.1); MONO % 7.1 % (3.8-10.2); NEUT % 50.5 % (42.8-82.8); PLATELET COUNT 196 K/MM3 (134-434); RBC 4.27 M/mm3 (4.00-5.60); WHITE BLOOD COUNT 6.2 K/mm3 (4.0-10.0)
[2019-10-08 19:04] LABS: ALBUMIN 3.3 g/dl (3.4-5.0); ALK PHOS 87 U/L (45-117); ANION GAP 5 MMOL/L (8-16); BILIRUBIN,TOTAL 0.2 mg/dL (0.2-1); BLOOD UREA NITROGEN 14.6 mg/dL (7-18); CALCIUM 8.9 mg/dL (8.5-10.1); CHLORIDE 105 mmol/L (98-107); CO2 30 mmol/L (21-32); CREATININE 1.4 mg/dL (0.55-1.3); GLUCOSE,RANDOM 68 mg/dL (74-106); POTASSIUM 4.5 mmol/L (3.5-5.1); SGOT/AST 19 U/L (15-37); SGPT/ALT 37 U/L (13-61); SODIUM 139 mmol/L (136-145); TOT PROT 7.3 g/dl (6.4-8.2)
[2019-10-08 19:46] VITALS: BP 139/92; PULSE 77
== END 2019-10-08 20:15 | disposition home or self-care (01) ==
LOC: JER 15:47
DX: I10 Essential (primary) hypertension (principal)
CPT/HCPCS: 36415; 70450-TC; 80053; 82550; 82962; 84484; 85025; 93005; 93010; 99284-25; G0277

== ENCOUNTER 2019-11-02 13:28 | Emergency (ER) | payer OTHER ==
[2019-11-02 13:49] VITALS: BP 137/92; PULSE 92; TEMP 98.2; BMI 20.5
[2019-11-02] MEDS ORDERED: ACETAMINOPHEN 1000 MG/100 ML VIAL (NON FORMULARY) IVPB ONE (14:19)
[2019-11-02] MEDS ORDERED: METOCLOPRAMIDE HCL INJECTION 10 MG/2 ML VIAL IVPB ONE (14:25)
--- NOTE | 2019-11-02 14:29 | PDOC ---
History of Present Illness - General Stated Complaint: NAUSEA,VOMITING Time Seen by Provider: 11/02/19 13:48 - History of Present Illness Initial Comments: Arias Morales is a 43 y/o male with PMH significant for asthma, DM, diabetic neuropathy, s/p left toe amputation for osteo, presenting today with nausea and vomiting x3 days. Denies abdominal pain. Reports intermittent non bloody diarrhea. NBNB vomit. No chest pain/shortness of breath. No fever/chills. No leg swelling. Reports chronic back pain that is unchanged. No dysuria. No recent sick contacts. SocHx: marijuana smoker, 4-5 cigarettes per day smoker, social etoh SurgHx: no abdominal surgeries Past History - Medical History Allergies/Adverse Reactions: Allergies Allergy/AdvReac Type Severity Reaction Status Date / Time No Known Drug Allergies Allergy Verified 10/08/19 15:52 seafood Allergy Uncoded 10/08/19 15:52 Home Medications: Ambulatory Orders Glyburide [Micronase -] 5 mg PO BID 11/20/16 Albuterol Sulfate Inhaler - [Ventolin HFA Inhaler -] 1 - 2 inh PO Q4H PRN #1 in haler 05/30/18 Metformin HCl [Glucophage] 1,000 mg PO BID 09/08/19 Metoclopramide HCl [Reglan] 10 mg PO TID PRN #60 tablet 09/09/19 Insulin Glargine,Hum.rec.anlog [Lantus] 10 units SQ HS 09/25/19 Lisinopril [Prinivil] 10 mg PO DAILY 10/16/19 Anemia: No Asthma: Yes Cancer: No Cardiac Disorders: No CVA: No COPD: No CHF: No Dementia: No Diabetes: Yes GI Disorders: No Disorders: No HTN: Yes Hypercholesterolemia: No Liver Disease: No Seizures: No Thyroid Disease: No - Surgical History Abdominal Surgery: No Appendectomy: No Cardiac Surgery: No Cholecystectomy: No Lung Surgery: No Neurologic Surgery: No Orthopedic Surgery: Yes (hand left -incision &drain abcess) - Immunization History Td Vaccination: No TDAP Vaccination: No Immunization Up to Date: Yes - Psycho-Social/Smoking History Smoking Status: Yes Smoking History: Current every day smoker Years of Tobacco Use: 25 Have you smoked in the past 12 months: Yes Number of Cigarettes Smoked Daily: 20 Cigars Per Day: 0 Information on smoking cessation initiated: No 'Breaking Loose' booklet given: 01/07/16 - Substance Abuse Hx (Audit-C & DAST Scrn) How often the patient has a drink containing alcohol: Never Score: In Men: 4 or > Positive; In Women: 3 or > Positive: 0 Screen Result (Pos requires Nsg. Audit-10AR): Negative In the last yr the pt used illegal drug/Rx for NonMed reason: Yes Score: Yes response is considered Positive: 1 Screen Result (Positive result requires Nsg. DAST-10): Positive Review of Systems - Review of Systems Comments:: GENERAL/CONSTITUTIONAL: No fever or chills. No weakness._ HEAD, EYES, EARS, NOSE AND THROAT: No change in vision. No change in hearing. No sore throat._ CARDIOVASCULAR: No chest pain or shortness of breath_ RESPIRATORY: Denies cough, hemoptysis_ GASTROINTESTINAL: Reports nausea, vomiting, and diarrhea. No constipation. GENITOURINARY: No dysuria, frequency, or change in urination._ MUSCULOSKELETAL: No joint or muscle swelling or pain. No neck or back pain._ SKIN: No rash_ NEUROLOGIC: No headache, vertigo, loss of consciousness, or change in strength/s ensation._ ENDOCRINE: No increased thirst. No abnormal weight change_ HEMATOLOGIC/LYMPHATIC: No anemia, easy bleeding, or history of blood clots._ ALLERGIC/IMMUNOLOGIC: No hives or skin allergy._ *Physical Exam - Vital Signs Last Vital Signs Temp Pulse Resp BP Pulse Ox 98.2 F 92 H 18 137/92 100 11/02/19 13:29 11/02/19 13:29 11/02/19 13:29 11/02/19 13:29 11/02/19 13:29 - Physical Exam GENERAL: Awake, alert, and oriented to person/place/time, in no acute distress_ HEAD: No signs of trauma, normocephalic, atraumatic _ EYES: PERRLA, EOMI, sclera anicteric, conjunctiva clear_ ENT: Hearing grossly normal, nares patent, oropharynx clear without exudates. No uvular deviation. Moist mucosa_ NECK: Normal ROM, supple, no lymphadenopathy, JVD, or masses_ LUNGS: No distress, speaks in full sentences, clear to auscultation bilaterally _ HEART: Regular rate and rhythm, normal S1 and S2, no murmurs appreciated, peripheral pulses normal and equal bilaterally._ ABDOMEN: Soft, very minimal TTP BUQ and epigastrium, normoactive bowel sounds. No guarding, no rebound. No masses_ EXTREMITIES: Normal inspection, Normal range of motion, no edema. No clubbing or cyanosis_ NEUROLOGICAL: Cranial nerves II through XII grossly intact. Normal speech, normal gait, no focal sensorimotor deficits _ SKIN: Warm, mildly diaphoretic, normal turgor, no rashes or lesions noted_ ED Treatment Course - LABORATORY CBC & Chemistry Diagram: 11/02/19 14:30 11/02/19 14:30 - RADIOLOGY Radiology Studies Ordered: Category Date Time Status CHEST X-RAY PORTABLE* [RAD] Stat Radiology 11/02/19 14:18 Taken Medical Decision Making - Medical Decision Making 43M hx of asthma and DM presenting today with nausea and vomiting x3 days NBNB, diarrhea. No abdominal pain and minimal TTP on exam. No infectious symptoms. -labs -ekg -trop -cxr -lactic -lipase -fluids -tylenol -GI cocktail -reglan 11/02/19 14:32 CXR negative for acute chest pathology. 11/02/19 16:00 EKG shows 91 bpm, sinus rhythm, QTc 423, no ST elevation, no axis deviation. 11/02/19 16:02 Labs reviewed. Laboratory Last Values WBC 7.1 K/mm3 (4.0-10.0) 11/02/19 14:30 RBC 4.60 M/mm3 (4.00-5.60) 11/02/19 14:30 Hgb 11.5 GM/dL (11.7-16.9) L 11/02/19 14:30 Hct 35.9 % (35.4-49) 11/02/19 14:30 MCV 78.0 fl (80-96) L 11/02/19 14:30 MCH 24.9 pg (25.7-33.7) L 11/02/19 14:30 MCHC 32.0 g/dl (32.0-35.9) 11/02/19 14:30 RDW 15.5 % (11.9-15.9) 11/02/19 14:30 Plt Count 215 K/MM3 (134-434) 11/02/19 14:30 MPV 8.4 fl (7.5-11.1) 11/02/19 14:30 Absolute Neuts (auto) 4.9 K/mm3 (1.5-8.0) 11/02/19 14:30 Neutrophils % 69.2 % (42.8-82.8) D 11/02/19 14:30 Lymphocytes % 22.5 % (8-40) D 11/02/19 14:30 Monocytes % 6.0 % (3.8-10.2) 11/02/19 14:30 Eosinophils % 1.4 % (0-4.5) 11/02/19 14:30 Basophils % 0.9 % (0-2.0) 11/02/19 14:30 Nucleated RBC % 0 % (0-0) 11/02/19 14:30 PT with INR 11.20 SEC (9.7-13.0) 11/02/19 14:30 INR 0.95 (0.83-1.09) 11/02/19 14:30 PTT (Actin FS) 31.1 SECONDS (25.2-36.5) 11/02/19 14:30 Sodium 140 mmol/L (136-145) 11/02/19 14:30 Potassium 4.5 mmol/L (3.5-5.1) 11/02/19 14:30 Chloride 100 mmol/L (98-107) 11/02/19 14:30 Carbon Dioxide 30 mmol/L (21-32) 11/02/19 14:30 Anion Gap 10 MMOL/L (8-16) 11/02/19 14:30 BUN 16.0 mg/dL (7-18) 11/02/19 14:30 Creatinine 1.5 mg/dL (0.55-1.3) H 11/02/19 14:30 Est GFR (CKD-EPI)AfAm 64.24 11/02/19 14:30 Est GFR (CKD-EPI)NonAf 55.43 11/02/19 14:30 Random Glucose 241 mg/dL (74-106) H 11/02/19 14:30 Lactic Acid 1.0 mmol/L (0.4-2.0) 11/02/19 14:30 Calcium 9.7 mg/dL (8.5-10.1) 11/02/19 14:30 Total Bilirubin 0.3 mg/dL (0.2-1) 11/02/19 14:30 AST 19 U/L (15-37) 11/02/19 14:30 ALT 34 U/L (13-61) 11/02/19 14:30 Alkaline Phosphatase 106 U/L (45-117) 11/02/19 14:30 Creatine Kinase 104 U/L (26-308) 11/02/19 14:30 Troponin I < 0.02 ng/ml (0.00-0.05) 11/02/19 14:30 Total Protein 7.6 g/dl (6.4-8.2) 11/02/19 14:30 Albumin 3.4 g/dl (3.4-5.0) 11/02/19 14:30 Lipase 134 U/L (73-393) 11/02/19 14:30 Pt reassessed. Reports significant improvement of abdominal pain. Will give additional 1L of NS for NICHOLAS with nephro f/u. Plan to d/c home. All questions answered. Return precautions given. Pt verbalized understanding and agreement with plan. Discharge - Discharge Information Problems reviewed: Yes Clinical Impression/Diagnosis: Vomiting, Epigastric abdominal pain Condition: Stable Disposition: HOME - Admission No - Follow up/Referral Referrals: Rahat Hendricks MD [Primary Care Provider] - Precious Gary MD [Staff Physician] - - Patient Discharge Instructions Patient Printed Discharge Instructions: DI for Vomiting -- Adult Additional Instructions: Please see Dr. Gary (nephrology) for further evaluation of your kidneys. Your creatinine was slightly elevated today and it is important to have that evaluated when you are not having nausea and vomiting. Please make a follow up appointment with your primary care doctor. Please try to decrease or eliminate your marijuana use, and this can contribute to nausea and vomiting. If you experience any new, worsening, or concerning symptoms, including blood in the vomit, dizziness, chest pain, shortness of breath, or any other concerns, please return to the emergency department. - Post Discharge Activity
[2019-11-02] MEDS ORDERED: MAG HYDROX/AL HYDROX/SIMETH -MYLANTA- ORAL SUSPENSION PO ONE (14:33)
[2019-11-02] MEDS ORDERED: SODIUM CHLORIDE 0.9% 500 ML INFUS.BAG IV ONE ×2 (14:33→15:58)
[2019-11-02] MEDS ORDERED: FAMOTIDINE 20 MG/50 ML IVPB 20 MG/50 ML MG IVPB ONE (14:33)
[2019-11-02] MEDS ORDERED: LIDOCAINE VISCOUS 2% ORAL/TOP 20 ML UNIT-DOSE CUP MM ONE (14:33)
[2019-11-02] MEDS ORDERED: LIDOCAINE VISCOUS 2% ORAL/TOP 20 ML UNIT-DOSE CUP ONE (14:40)
[2019-11-02] MEDS ORDERED: MAG HYDROX/AL HYDROX/SIMETH 30 ML UNIT-DOSE CUP ONE (14:41)
[2019-11-02] MEDS ORDERED: ACETAMINOPHEN INJECTION 100 ML IVPB ONE (14:41)
[2019-11-02] MEDS ORDERED: FAMOTIDINE 20 MG TABLET ONE (14:41)
[2019-11-02 14:48] LABS: BASO % 0.9 % (0-2.0); EOS % 1.4 % (0-4.5); HEMATOCRIT 35.9 % (35.4-49); HEMOGLOBIN 11.5 GM/dL (11.7-16.9); LYMPH % 22.5 % (8-40); MCH 24.9 pg (25.7-33.7); MEAN PLT VOLUME 8.4 fl (7.5-11.1); NEUT % 69.2 % (42.8-82.8); PLATELET COUNT 215 K/MM3 (134-434); RDW 15.5 % (11.9-15.9); WHITE BLOOD COUNT 7.1 K/mm3 (4.0-10.0)
--- NOTE | 2019-11-02 14:53 | PDOC ---
Documentation entered by Deidra Lara SCRIBE, acting as scribe for Caroline Lynch MD. Caroline Lynch MD: This documentation has been prepared by the Marco morrow Nirvannie, SCRIBE, under my direction and personally reviewed by me in its entirety. I confirm that the documentation accurately reflects all work, treatment, procedures, and medical decision making performed by me. Attending Attestation - Resident Resident Name: Ignacio Yun - ED Attending Attestation I have performed the following: I have examined & evaluated the patient, The case was reviewed & discussed with the resident, I agree w/resident's findings & plan, Exceptions are as noted - HPI HPI: 11/02/19 14:46 The patient is a 43 year old male with a significant past medical history of IDDM (non-adherent to treatment regimen), diabetic neuropathy (s/p left toe amputation for osteomyelitis), asthma, and chronic back pain who presents to the ED with 3 days of nausea with associated NBNB emesis and intermittent diarrhea. He notes a prior h/o similar abdominal discomfort with n/v but cannot recall exactly what the cause was. Allergies: NKDA Social History: Marijuana smoking, 4-5 cigarettes/day, social EtOH. Primary Care Physician: Dr. Hendricks - Physicial Exam PE: 11/02/19 14:48 GENERAL: a bit uncomfortable-appearing, A/Ox4, answers questions appropriately, actively dry heaving clear fluid into emesis basin HEENT: PERRLA, EOMI, moist mucous membranes NECK/BACK: no midline ttp, no spinal stepoff or deformity, no hematoma, full ROM, neck supple CARDIOVASCULAR: regular rate/rhythm, no MGR, strong peripheral pulses, capillary refill <2 seconds, extremities wwp, no edema LUNGS/RESPIRATORY: no respiratory distress, CTAB GI/ABDOMEN: symmetric [id number], normoactive BS, soft, mild epigastric ttp, no midline pulsatile masses : no CVA tenderness MSK/EXTREMITIES: no muscle atrophy, no acute deformity SKIN: warm and dry, no pallor, no jaundice, no rash, no pathologic-appearing bruising, no skin breakdown, no cuts, no lesions NEUROLOGICAL: GCS 15, CN II-XII grossly intact, 5/5 strength proximally and distally, no facial droop - Medical Decision Making 11/02/19 14:50 43YOM with marijuana use and DM p/w n/v and epigastric pain. Initial Vital Signs Temp Pulse Resp BP Pulse Ox 98.2 F 92 H 18 137/92 100 11/02/19 13:29 11/02/19 13:29 11/02/19 13:29 11/02/19 13:29 11/02/19 13:29 DDX IBNLT: most likely gastroparesis or cannabinoid hyperemesis but also considered are gastritis, PUD, pancreatitis, cholecystitis, renal colic, etc. W/U ordered: Labs as noted below, EKG, CXR TX ordered: Regwillam Almanza IVF EKG: Reviewed; results as noted in ECG Review section. Laboratory Tests 11/02/19 11/02/19 11/02/19 14:30 14:30 14:30 WBC 7.1 RBC 4.60 Hgb 11.5 L Hct 35.9 MCV 78.0 L MCH 24.9 L MCHC 32.0 RDW 15.5 Plt Count 215 MPV 8.4 Absolute Neuts (auto) 4.9 Neutrophils % 69.2 D Lymphocytes % 22.5 D Monocytes % 6.0 Eosinophils % 1.4 Basophils % 0.9 Nucleated RBC % 0 PT with INR 11.20 INR 0.95 PTT (Actin FS) 31.1 Sodium 140 Potassium 4.5 Chloride 100 Carbon Dioxide 30 Anion Gap 10 BUN 16.0 Creatinine 1.5 H Est GFR (CKD-EPI)AfAm 64.24 Est GFR (CKD-EPI)NonAf 55.43 Random Glucose 241 H Lactic Acid Calcium 9.7 Total Bilirubin 0.3 AST 19 ALT 34 Alkaline Phosphatase 106 Creatine Kinase 104 Troponin I < 0.02 Total Protein 7.6 Albumin 3.4 Lipase 134 11/02/19 14:30 WBC RBC Hgb Hct MCV MCH MCHC RDW Plt Count MPV Absolute Neuts (auto) Neutrophils % Lymphocytes % Monocytes % Eosinophils % Basophils % Nucleated RBC % PT with INR INR PTT (Actin FS) Sodium Potassium Chloride Carbon Dioxide Anion Gap BUN Creatinine Est GFR (CKD-EPI)AfAm Est GFR (CKD-EPI)NonAf Random Glucose Lactic Acid 1.0 Calcium Total Bilirubin AST ALT Alkaline Phosphatase Creatine Kinase Troponin I Total Protein Albumin Lipase The Pt has gotten significant relief of symptoms while in the ED. He does have NICHOLAS with Cr 1.5 but this is very likely explained by dehydration. Patient has received 2 liters IVF while in the ED. He is asymptomatic at last exam, states he wants to go home. Workup is not concerning for emergency-level pathology at this time. They are appropriate for discharge with close outpatient follow up with nephrology, states he will go, and his new PCP has been working out all his specialist referrals now that his insurance has been set up. They are comfortable with this plan and will follow up with PCP in 1-3 days. Specific return precautions are discussed and they will come back to the ER if necessary. Heart Score/ECG Review #1 11/02/19 15:45 Sinus rhythm, rate 91, incomplete RBBB, 1.5mm concave upward SUMA in V2, V3, V4 without SC depressions or reciprocal changes and all of which are same as prior EKG from 09/2019. Discharge - Discharge Information Problems reviewed: Yes Clinical Impression/Diagnosis: Vomiting, Epigastric abdominal pain Condition: Stable Disposition: HOME - Admission No - Follow up/Referral Referrals: Rahat Hendricks MD [Primary Care Provider] - Precious Gary MD [Staff Physician] - - Patient Discharge Instructions Patient Printed Discharge Instructions: DI for Vomiting -- Adult Additional Instructions: Please see Dr. Gary (nephrology) for further evaluation of your kidneys. Your creatinine was slightly elevated today and it is important to have that evaluated when you are not having nausea and vomiting. Please make a follow up appointment with your primary care doctor. If you experience any new, worsening, or concerning symptoms, including blood in the vomit, dizziness, chest pain, shortness of breath, or any other concerns, please return to the emergency department. - Post Discharge Activity
[2019-11-02 14:54] LABS: INR 0.95 (0.83-1.09); PROTHROMBIN TIME (PATIENT) 11.2 SEC (9.7-13.0)
[2019-11-02 14:57] LABS: ACTIVATED PTT 31.1 SECONDS (25.2-36.5)
[2019-11-02 15:26] LABS: ALBUMIN 3.4 g/dl (3.4-5.0); ALK PHOS 106 U/L (45-117); ANION GAP 10 MMOL/L (8-16); BILIRUBIN,TOTAL 0.3 mg/dL (0.2-1); CALCIUM 9.7 mg/dL (8.5-10.1); CHLORIDE 100 mmol/L (98-107); CO2 30 mmol/L (21-32); CREATININE 1.5 mg/dL (0.55-1.3); GLUCOSE,RANDOM 241 mg/dL (74-106); LIPASE 134 U/L (73-393); POTASSIUM 4.5 mmol/L (3.5-5.1); SGOT/AST 19 U/L (15-37); SGPT/ALT 34 U/L (13-61); SODIUM 140 mmol/L (136-145); TOT PROT 7.6 g/dl (6.4-8.2)
--- NOTE | 2019-11-03 15:03 | EKG ---
Test Reason : Blood Pressure : / mmHG Vent. Rate : 091 BPM Atrial Rate : 091 BPM P-R Int : 116 ms QRS Dur : 076 ms QT Int : 344 ms P-R-T Axes : 079 -26 035 degrees QTc Int : 423 ms SINUS RHYTHM WITH PREMATURE SUPRAVENTRICULAR COMPLEXES EARLY REPOLARIZATION OTHERWISE NORMAL ECG WHEN COMPARED WITH ECG OF 08-OCT-2019 17:38, PREMATURE SUPRAVENTRICULAR COMPLEXES ARE NOW PRESENT Confirmed by OLGA DANIELSON MD ([id number]) on 11/03/2019 3:02:48 PM Referred By: Confirmed By:OLGA DANIELSON MD
== END 2019-11-02 17:40 | disposition home or self-care (01) ==
LOC: JER 13:28
PROC: 3E033GC Introduction of Other Therapeutic Substance into Peripheral Vein, Percutaneous Approach (ICD-10-PCS; principal; 2019-11-02)
DX: R10.13 Epigastric pain (principal); R11.10 Vomiting, unspecified
CPT/HCPCS: 36415; 71045-TC-FY; 80053; 82550; 83605; 83690; 84484; 85025; 85610; 85730; 93005; 93010; 99285-25; J0131

== ENCOUNTER 2019-11-21 16:39 | Emergency (ER) | payer OTHER ==
[2019-11-21 16:57] VITALS: TEMP 98.2; BMI 19.9
[2019-11-21] MEDS ORDERED: LACTATED RINGERS SOLUTION 1000 ML INFUS.BAG IV ONE ×2 (17:30→20:41)
--- NOTE | 2019-11-21 17:47 | PDOC ---
History of Present Illness - General Chief Complaint: Blood Pressure Problem Stated Complaint: Blood Pressure Problem Time Seen by Provider: 11/21/19 16:50 - History of Present Illness Initial Comments: HPI Pt is a 43yo M with PMH DM, HTN, asthma who presents with hypotension. Pt was at Dr. Gary's office and reports feeling dizzy -described as room spinning- when going from sitting to standing. Describes prodrome of feeling warm, clammy, and weak a/w with episode. BP was found to be 91/60, then 70/40 at the office; with EMS found to be 72/41. States similar episode 2 days ago, a/w position (sit ting to standing), described as room spinning. States that since having his big toe amputation in August with subsequent antibiotic regimen, he has had n/v, diarrhea. States 2 month history of diarrhea, with 1-5 episodes per day, non bloody, dark brown. States that n/v have resolved, but still has decreased appetite. Has been eating 2 meals a day with 3 bottles of Gatorade. Reports intermittent headaches, fatigue, neck pain over the past few months. Denies f/c, chest pain, SOB, abdominal pain, melena/hematochezia, dysuria, hematuria, syncope, lightheadedness. PCP: Lana PMH: see above PSH: L big toe amputation Meds: metformin, glyburide, lisinopril Allergies: seafood Social: reports 1/2PPD, denies etoh use, tried marijuana 3 weeks ago for appetite, but had no effect Review of Systems CONSTITUTIONAL:reports fatigue, diaphoresis, loss of appetite; denies fever, chills, generalized weakness, malaise HEENT:denies rhinorrhea, nasal congestion, sore throat, ear pain, eye pain, visual Changes CARDIOVASCULAR:denies chest pain, syncope, palpitations, irregular heart rate, lightheadedness, peripheral edema RESPIRATORY:denies cough, shortness of breath, dyspnea with exertion, orthopnea, wheezing, hemoptysis GASTROINTESTINAL: denies abdominal pain, abdominal distension, nausea, vomiting, diarrhea, constipation, melena, hematochezia GENITOURINARY:denies dysuria, frequency, urgency, hesitancy, hematuria, flank pain, genital pain MUSCULOSKELETAL:denies myalgia, arthralgia, neck pain, back pain HEMATOLOGIC/IMMUNOLOGIC:denies easy bleeding, easy bruising, lymphadenopathy, frequent infections ENDOCRINE: denies unexplained weight gain, unexplained weight loss, heat intolerance, cold intolerance NEUROLOGIC:reports dizziness; denies headache, loss of consciousness, focal weakness or paresthesias, dizziness, unsteady gait, seizure, mental status changes, bladder or bowel incontinence SKIN:denies rash, itching, pallor Physical Exam General: awake, alert, fully oriented, in no acute distress, well developed, well nourished Head: normocephalic, atraumatic Eyes: PERRL, EOMI, anicteric sclera, conjunctiva clear ENT: hearing grossly normal, nares patent, oropharynx clear without exudates. No nasal congestion Moist mucous membranes Neck: supple, normal ROM, no LAD, JVD or masses Lung: equal breath sounds b/l, CTA b/l, no crackles, wheezes; no distress, speaks full sentences Heart: RRR, normal S1, S2, no murmurs, rubs, gallops Abdomen: soft, non tender, normoactive bowel sounds, no guarding, rebound, masses Extremities: normal ROM, no edema, no erythema or tenderness, DP/PT pulses 2+ and symmetric, no clubbing, cyanosis Neuro: CN2-12 grossly intact, moves all extremities, 5/5 motor strength in Upper and Lower extremities, normal speech, sensation intact, finger nose, heel hicks intact Skin: warm, dry; wound vac to L foot Past History - Medical History Allergies/Adverse Reactions: Allergies Allergy/AdvReac Type Severity Reaction Status Date / Time No Known Drug Allergies Allergy Verified 10/08/19 15:52 seafood Allergy Uncoded 10/08/19 15:52 Home Medications: Ambulatory Orders Glyburide [Micronase -] 5 mg PO BID 11/20/16 Albuterol Sulfate Inhaler - [Ventolin HFA Inhaler -] 1 - 2 inh PO Q4H PRN #1 in haler 05/30/18 Metformin HCl [Glucophage] 1,000 mg PO BID 09/08/19 Insulin Glargine,Hum.rec.anlog [Lantus] 10 units SQ HS 09/25/19 Lisinopril [Prinivil] 10 mg PO DAILY 10/16/19 Anemia: No Asthma: Yes Cancer: No Cardiac Disorders: No CVA: No COPD: No CHF: No Dementia: No Diabetes: Yes GI Disorders: No Disorders: No HTN: Yes Hypercholesterolemia: No Liver Disease: No Seizures: No Thyroid Disease: No - Surgical History Abdominal Surgery: No Appendectomy: No Cardiac Surgery: No Cholecystectomy: No Lung Surgery: No Neurologic Surgery: No Orthopedic Surgery: Yes (hand left -incision &drain abcess) - Immunization History Td Vaccination: No TDAP Vaccination: No Immunization Up to Date: Yes - Psycho-Social/Smoking History Smoking Status: Yes Smoking History: Current every day smoker Years of Tobacco Use: 25 Have you smoked in the past 12 months: Yes Number of Cigarettes Smoked Daily: 20 Cigars Per Day: 0 Information on smoking cessation initiated: No 'Breaking Loose' booklet given: 01/07/16 - Substance Abuse Hx (Audit-C & DAST Scrn) How often the patient has a drink containing alcohol: Monthly or less How often the patient has six or more drinks on one occasion: Never Score: In Men: 4 or > Positive; In Women: 3 or > Positive: 1 Screen Result (Pos requires Nsg. Audit-10AR): Negative In the last yr the pt used illegal drug/Rx for NonMed reason: No Score: Yes response is considered Positive: 0 Screen Result (Positive result requires Nsg. DAST-10): Negative *Physical Exam - Vital Signs Last Vital Signs Temp Pulse Resp BP Pulse Ox 98.2 F 88 18 99/70 97 11/21/19 16:53 11/21/19 16:53 11/21/19 16:53 11/21/19 16:53 11/21/19 16:53 ED Treatment Course - LABORATORY CBC & Chemistry Diagram: 11/21/19 17:15 11/21/19 18:00 - RADIOLOGY Radiology Studies Ordered: Category Date Time Status CHEST X-RAY PORTABLE* [RAD] Stat Radiology 11/21/19 17:28 Ordered Medical Decision Making - Medical Decision Making Pt is a 43yo M with PMH DM, HTN, asthma, who presents with vertiginous symptoms and hypotension, with hx of diarrhea x2 months Vital Signs Period Temp Pulse Resp BP Sys/Trent Pulse Ox Last 24 Hr 98.2 F 88 18 99/70 97 DDx: C.diff infection, orthostatic hypotension, arrhythmia, ACS Plan: labs, EKG, CXR, IV fluids 11/21/19 18:25 attempted to stand patient up to assess gait, became vertiginous, SBP 79. EKG: sinus rhythm with PAC, HR 87bpm, [place] 112ms, QRS 76ms, QTc 423ms, no ST changes, unchanged from 10/2019. Patient states his blood sugar feels low, FSG in 30s, given amp of dextrose 11/21/19 19:02 refused covid swab 11/21/19 19:10 Pt signed out to night team, pending labs Discharge - Discharge Information Problems reviewed: Yes Clinical Impression/Diagnosis: Hypotension Qualifiers: Hypotension type: orthostatic hypotension Qualified Code(s): I95.1 - Orth ostatic hypotension - Follow up/Referral Referrals: Jose Antonio Schwartz MD [Primary Care Provider] - - Patient Discharge Instructions - Post Discharge Activity
[2019-11-21] MEDS ORDERED: DEXTROSE 50%-WATER 25 GM/50 ML DISP.SYRIN ONE (18:11)
[2019-11-21] MEDS ORDERED: DEXTROSE 50%-WATER - 25 GM/50 ML VIAL IVPUSH ONE (18:32)
[2019-11-21 18:57] LABS: BASO % 0.8 % (0-2.0); EOS % 2.4 % (0-4.5); HEMATOCRIT 33.5 % (35.4-49); HEMOGLOBIN 10.7 GM/dL (11.7-16.9); MCH 25.1 pg (25.7-33.7); MCHC 32.1 g/dl (32.0-35.9); MEAN CELL VOLUME 78.2 fl (80-96); MEAN PLT VOLUME 8.6 fl (7.5-11.1); MONO % 8.5 % (3.8-10.2); NEUT % 52.3 % (42.8-82.8); PLATELET COUNT 214 K/MM3 (134-434); RBC 4.28 M/mm3 (4.00-5.60); WHITE BLOOD COUNT 8.3 K/mm3 (4.0-10.0)
[2019-11-21 19:00] VITALS: BP 109/85; PULSE 85
--- NOTE | 2019-11-21 19:04 | PDOC ---
Documentation entered by Evelin Antonio SCRIBE, acting as scribe for Renetta Cullen DO. Renetta Cullen DO: This documentation has been prepared by the Paco morrow Sydney, SCRIBE, under my direction and personally reviewed by me in its entirety. I confirm that the documentation accurately reflects all work, treatment, procedures, and medical decision making performed by me. Attending Attestation - Resident Resident Name: Deneen Yun - ED Attending Attestation I have performed the following: I have examined & evaluated the patient, The case was reviewed & discussed with the resident, I agree w/resident's findings & plan, Exceptions are as noted - HPI HPI: 11/21/19 18:20 Patient is a 43 year old male with a significant past medical history of HTN, IDDM (non-adherent to treatment regimen), diabetic neuropathy (s/p left toe amputation for osteomyelitis), asthma who presents to the ED from Dr. Urbina office with hypotension. As per patient, he felt dizzy when he stood up from a seated position. Patient also endorses feeling weak and clammy during the episode. Patient notes having a similar episode two days ago, where he described the room was spinning. Patient reports similar events have been happening since left toe amputation this past August, where he was prescribed antibiotics and developed nausea, vomiting, and diarrhea. He also states having intermittent headaches, fatigue, neck pain for the last few months. Denies fever, chills, chest pain, shortness of breath, abdominal pain, or urinary changes. Allergies: NKDA PCP: Dr. Schwartz - Physicial Exam PE: 11/21/19 18:46 Gen: aaox3, hypotensive, diaphoretic heent: eomi, dry mm neck: supple heart: +s1s2 reg lungs: cta b/l abd: soft, nt/nd +bs ext: no c/c/e skin: diaphoretic, wound vac to L foot - Medical Decision Making 11/21/19 19:01 a/p: 43yo male with hx of dm and ckd sent from Dr. Gary office for eval of hypotension -pt with hypoglycemia upon arrival, glu 36, d50 and a sandwich given -pt with +orthostatic bp -pt with recent diarrhea after taking abx for a lower extremity wound, wound vac in place -will send labs, ekg, cxr -will monitor glu -pt will need IVF hydration and admission 11/21/19 20:31 labs reviewed case discussed with Dr. Gary - hold lisinopril continue ivf 11/21/19 20:44 pt states he does nto want to be admitted states he carlos stay for 1 more liter ivf and then ama will attempt to give a stool sample will follow up with dr. gary in the AM for a bp chekc 11/22/19 02:10 pt has signed out AMA will hold his linisopril tomorrow will follow up with Dr. Gary for a bp check tomorrow Heart Score/ECG Review - ECG Intrepretation Comment:: 11/21/19 19:03 sinus at 87, pac, nl axis, nl interval, early repol anterior leads, no acute st/t wave findings Discharge - Discharge Information Problems reviewed: Yes Clinical Impression/Diagnosis: Orthostatic hypotension, Hypoglycemia, Diarrhea Hypotension Qualifiers: Hypotension type: orthostatic hypotension Qualified Code(s): I95.1 - Orthostatic hypotension Condition: Unchanged/Unknown Disposition: AGAINST MEDICAL ADVICE - Follow up/Referral Referrals: Jose Antonio Schwartz MD [Primary Care Provider] - - Patient Discharge Instructions - Post Discharge Activity
--- NOTE | 2019-11-21 19:19 | PDOC ---
*Physical Exam - Vital Signs Last Vital Signs Temp Pulse Resp BP Pulse Ox 98.2 F 85 18 109/85 99 11/21/19 16:53 11/21/19 18:59 11/21/19 18:59 11/21/19 18:59 11/21/19 18:59 ED Treatment Course - LABORATORY CBC & Chemistry Diagram: 11/21/19 17:15 11/21/19 18:00 - ADDITIONAL ORDERS Additional order review: Laboratory Results 11/21/19 11/21/19 18:43 18:10 POC Glucometer 123 36 11/21/19 11/21/19 18:43 18:10 POC Glucometer 123 36 - Medications Given in the ED: ED Medications Discontinued Medications Generic Name Dose Route Start Last Admin Trade Name Elaina PRN Reason Stop Dose Admin Dextrose 25 gm 11/21/19 18:32 11/21/19 18:34 D50w (Vial) - IVPUSH 11/21/19 18:33 25 gm NOW ONE Administration Lactated Ringer's 1,000 ml 11/21/19 17:30 11/21/19 18:31 Lactated Ringers Solution IV 11/21/19 17:31 1,000 ml ONCE ONE Administration Medical Decision Making - Medical Decision Making 11/21/19 19:18 Pt received on s/o from Dr. Connors and Dr. Deneen Yun. 43M hx of DM, HTN, asthma, sent in from Dr. Gary's office for hypotension and dizziness when going from sitting to standing. 11/21/19 20:31 Pt reassessed and remains orthostatic. sBP 110 when seating, then 90s when standing. Pt states that he does not have any complaints and feels at his baseline and does not want to stay in the hospital. D/w Dr. Gary, who recommends additional liter of LR, holding patient's lisinopril and he will follow up with the patient in the office. Vital Signs Temperature 98.2 F 11/21/19 16:53 Pulse Rate 85 11/21/19 18:59 Respiratory Rate 18 11/21/19 18:59 Blood Pressure 109/85 11/21/19 18:59 O2 Sat by Pulse Oximetry (%) 98 11/21/19 20:16 Labs reviewed. Laboratory Last Values WBC 8.3 K/mm3 (4.0-10.0) 11/21/19 17:15 RBC 4.28 M/mm3 (4.00-5.60) 11/21/19 17:15 Hgb 10.7 GM/dL (11.7-16.9) L 11/21/19 17:15 Hct 33.5 % (35.4-49) L 11/21/19 17:15 MCV 78.2 fl (80-96) L 11/21/19 17:15 MCH 25.1 pg (25.7-33.7) L 11/21/19 17:15 MCHC 32.1 g/dl (32.0-35.9) 11/21/19 17:15 RDW 15.0 % (11.9-15.9) 11/21/19 17:15 Plt Count 214 K/MM3 (134-434) 11/21/19 17:15 MPV 8.6 fl (7.5-11.1) 11/21/19 17:15 Absolute Neuts (auto) 4.3 K/mm3 (1.5-8.0) 11/21/19 17:15 Neutrophils % 52.3 % (42.8-82.8) D 11/21/19 17:15 Lymphocytes % 36.0 % (8-40) D 11/21/19 17:15 Monocytes % 8.5 % (3.8-10.2) 11/21/19 17:15 Eosinophils % 2.4 % (0-4.5) 11/21/19 17:15 Basophils % 0.8 % (0-2.0) 11/21/19 17:15 Nucleated RBC % 0 % (0-0) 11/21/19 17:15 Sodium 138 mmol/L (136-145) 11/21/19 18:00 Potassium 4.4 mmol/L (3.5-5.1) 11/21/19 18:00 Chloride 104 mmol/L (98-107) 11/21/19 18:00 Carbon Dioxide 24 mmol/L (21-32) 11/21/19 18:00 Anion Gap 9 MMOL/L (8-16) 11/21/19 18:00 BUN 19.5 mg/dL (7-18) H 11/21/19 18:00 Creatinine 1.6 mg/dL (0.55-1.3) H 11/21/19 18:00 Est GFR (CKD-EPI)AfAm 59.42 11/21/19 18:00 Est GFR (CKD-EPI)NonAf 51.27 11/21/19 18:00 POC Glucometer 123 UNITS (80-120) 11/21/19 18:43 Random Glucose 154 mg/dL (74-106) H 11/21/19 18:00 Calcium 9.1 mg/dL (8.5-10.1) 11/21/19 18:00 Phosphorus 3.5 mg/dL (2.5-4.9) 11/21/19 18:00 Magnesium 1.9 mg/dL (1.8-2.4) 11/21/19 18:00 Total Bilirubin 0.2 mg/dL (0.2-1) 11/21/19 18:00 AST 15 U/L (15-37) 11/21/19 18:00 ALT 24 U/L (13-61) 11/21/19 18:00 Alkaline Phosphatase 76 U/L (45-117) 11/21/19 18:00 Creatine Kinase 91 U/L (26-308) 11/21/19 18:00 Troponin I < 0.02 ng/ml (0.00-0.05) 11/21/19 18:00 Total Protein 7.2 g/dl (6.4-8.2) 11/21/19 18:00 Albumin 3.4 g/dl (3.4-5.0) 11/21/19 18:00 11/21/19 22:16 The patient has requested to leave the ED against medical advice. The patient reason(s) for leaving include, but are not limited to, the following: does not want to stay in the hospital and feels fine. I believe this patient is of sound mind and competent to refuse medical care. The patient is responding and asking questions appropriately. The patient is oriented to person, place and time. The patient is not psychotic, delusional, suicidal, homicidal or hallucinating. The patient demonstrates a normal mental capacity to make decisions regarding their healthcare. The patient is clinically sober and does not appear to be under the influence of any illicit drugs at this time. The patient has been advised of the risks, in layman terms, of leaving AMA which include, but are not limited to , coma, permanent disability, loss of current lifestyle, delay in diagnosis. Alternatives have been offered - the patient remains steadfast in their wish to leave. The patient has been advised that should they change their mind they are welcome to return to this hospital, or any other, at any time. The patient understands that in no way does an AMA discharge mean that I do not want them to have the best medical care available. To this end, I have provided appropriate prescriptions, referrals, and discharge instructions. The patient did sign AMA paperwork. The above discussion was witnessed by another member of staff. Discharge - Discharge Information Problems reviewed: Yes Clinical Impression/Diagnosis: Orthostatic hypotension, Hypoglycemia, Diarrhea Hypotension Qualifiers: Hypotension type: orthostatic hypotension Qualified Code(s): I95.1 - Orthostatic hypotension Condition: Unchanged/Unknown Disposition: AGAINST MEDICAL ADVICE - Follow up/Referral Referrals: Jose Antonio Schwartz MD [Primary Care Provider] - - Patient Discharge Instructions - Post Discharge Activity
[2019-11-21 19:40] LABS: ALBUMIN 3.4 g/dl (3.4-5.0); ALK PHOS 76 U/L (45-117); ANION GAP 9 MMOL/L (8-16); BILIRUBIN,TOTAL 0.2 mg/dL (0.2-1); BLOOD UREA NITROGEN 19.5 mg/dL (7-18); CALCIUM 9.1 mg/dL (8.5-10.1); CHLORIDE 104 mmol/L (98-107); CO2 24 mmol/L (21-32); CREATININE 1.6 mg/dL (0.55-1.3); GLUCOSE,RANDOM 154 mg/dL (74-106); MAGNESIUM 1.9 mg/dL (1.8-2.4); PHOSPHOROUS 3.5 mg/dL (2.5-4.9); POTASSIUM 4.4 mmol/L (3.5-5.1); SGOT/AST 15 U/L (15-37); SGPT/ALT 24 U/L (13-61); SODIUM 138 mmol/L (136-145); TOT PROT 7.2 g/dl (6.4-8.2)
--- NOTE | 2019-11-22 14:52 | EKG ---
Test Reason : Blood Pressure : / mmHG Vent. Rate : 087 BPM Atrial Rate : 087 BPM P-R Int : 112 ms QRS Dur : 076 ms QT Int : 352 ms P-R-T Axes : 082 028 070 degrees QTc Int : 423 ms SINUS RHYTHM WITH PREMATURE ATRIAL COMPLEXES EARLY REPOLARIZATION OTHERWISE NORMAL ECG WHEN COMPARED WITH ECG OF 02-NOV-2019 15:45, NO SIGNIFICANT CHANGE WAS FOUND Confirmed by DYLON PARHAM MD ([id number]) on 11/22/2019 2:52:27 PM Referred By: Confirmed By:DYLON PARHAM MD
== END 2019-11-21 22:55 | disposition left against medical advice (07) ==
LOC: JERFT 16:39 → JER 16:39 → JERFT 22:39
PROC: 3E033GC Introduction of Other Therapeutic Substance into Peripheral Vein, Percutaneous Approach (ICD-10-PCS; principal; 2019-11-21)
DX: I95.1 Orthostatic hypotension (principal); E13.649 Other specified diabetes mellitus with hypoglycemia without coma; R19.7 Diarrhea, unspecified
CPT/HCPCS: 36415; 71045-TC-FY; 80053; 82550; 82962; 83735; 84100; 84484; 85025; 93005; 93010; 99285-25